=== PATIENT | female | born 1945 | race Caucasian/White ===

== ENCOUNTER 2017-01-10 19:37 | Inpatient (IN) | payer MEDICARE ==
--- NOTE | 2017-01-10 20:08 | ERPHSYRPT ---
- History of Present Illness Time Seen by Provider: 01/10/17 19:50 Source: patient Exam Limitations: no limitations Physician History: FOR THE PAST 22 HOURS PT HAS HAD SHORTNESS OF AIR AND INTERMITTENT SHARP LEFT CHEST PAIN LASTING UP TO 2 SECONDS PER EPISODE. PT ALSO STATES SHE HAS HAD INTERMITTENT CRAMPING BEHIND HER HEART FOR THE PAST 22 HOURS BUT IS UNSURE OF DURATION PER EPISODE. PT ALSO C/O OCCASIONAL HEADACHES. PT STATES SHE WAS HOSPITALIZED AT [facility] FOR 5 DAYS FOR A HB=5 AND INR OF 10. PT STATES SHE HAD AN EGD AND COLONOSCOPY BOTH OF WHICH FAILED TO SHOW BLEEDING HOWEVER BLOOD WAS DETECTED IN HER STOOL. PT RECEIVED 2 UNITS OF BLOOD AND WAS DISCHARGED HOME 12 DAYS AGO. Allergies/Adverse Reactions: No Known Drug Allergies Allergy (Verified 06/15/16 11:17) Home Medications: Atorvastatin Calcium 40 mg PO DAILY 09/26/15 [History] Clonazepam 0.5 mg [Klonopin 0.5 MG] 1 mg PO HS 09/26/15 [History] Losartan Potassium 50 mg [Cozaar 50 MG] 75 mg PO HS 09/26/15 [History] Omeprazole 20 MG [Prilosec 20 mg] 20 mg PO DAILY 09/26/15 [History] Escitalopram Oxalate [Lexapro] 10 mg PO DAILY 11/09/15 [History] Warfarin Sodium [Coumadin] 4 mg PO DAILY 11/09/15 [History] Aspirin 81 gm Chew [Baby Aspirin 81 mg Chew] 81 mg PO DAILY 05/24/16 [ History] Hx Tetanus, Diphtheria Vaccination/Date Given: No Hx Influenza Vaccination/Date Given: No Hx Pneumococcal Vaccination/Date Given: No - Review of Systems Constitutional: No Fever Ears, Nose, & Throat: No Ear Pain, No Throat Pain Respiratory: Dyspnea Cardiac: Chest Pain Abdominal/Gastrointestinal: No Abdominal Pain, No Vomiting Neurological: Headache Endocrine: No Excessive Sweating All Other Systems: Reviewed and Negative - Past Medical History Pertinent Past Medical History: Yes Neurological History: No Pertinent History ENT History: Cataracts Cardiac History: Arrhythmia, Congestive Heart Failure, High Cholesterol, Hypertension, Myocardial Infarction (HI) Respiratory History: Pneumonia Endocrine Medical History: No Pertinent History Musculoskeletal History: No Pertinent History, Fractures, Osteoarthritis GI Medical History: No Pertinent History, Gallbladder Disease History: Renal Disease, Other Psycho-Social History: Anxiety, Depression Female Reproductive Disorders: No Pertinent History Other Medical History: skin ca. KIDNEY FUNCTION 37% with kidney stone - Past Surgical History Past Surgical History: Yes Neuro Surgical History: No Pertinent History Cardiac: Cardiac Catheterization, Cardiac Stent, Valve Replacement Respiratory: No Pertinent History Gastrointestinal: Cholecystectomy Genitourinary: Kidney Surgery, Other Musculoskeletal: No Pertinent History Female Surgical History: No Pertinent History Other Surgical History: renal stents - Social History Smoking Status: Former smoker How long have you smoked: 30 Exposure to second hand smoke: No Drug Use: none Patient Lives Alone: No - Nursing Vital Signs Nursing Vital Signs: Initial Vital Signs Temperature 99.2 F Temperature Source Oral Pulse Rate [] 78 Pulse Rate 71 Respiratory Rate 23 Blood Pressure [] 130/78 Pain Intensity 0 - Physical Exam General Appearance: no apparent distress Eye Exam: PERRL/EOMI Ears, Nose, Throat Exam: pharynx normal, moist mucous membranes Neck Exam: normal inspection Respiratory Exam: other (SLIGHTLY DECREASED B.S. OVER LEFT POSTERIOR BASE.) Cardiovascular Exam: other (PROSTHETIC HEART VALVE SOUNDS) Gastrointestinal/Abdomen Exam: soft, normal bowel sounds Back Exam: normal range of motion Extremity Exam: normal inspection, No pedal edema Neurologic Exam: alert, cooperative Skin Exam: warm, dry - Course Nursing assessment & vital signs reviewed: Yes EKG Interpreted by Me: RATE, Sinus Rhythm, NORMAL AXIS, NORMAL INTERVALS, Right Bundle Branch Block - Radiology Exams Chest X-ray Interpretation: Interpreted by me (INFILTRATE LEFT LUNG) Ordered Tests: Active Orders 24 hr Category Date Time Status Attorney At Law STAT Care 01/10/17 19:59 Active EKG-ER Only STAT Care 01/10/17 19:59 Active IV Insertion STAT Care 01/10/17 19:59 Active Oxygen-ED Only NASAL CANNULA 2 lpm Care 01/10/17 19:59 Active Pulse Oximetry (ED) STAT Care 01/10/17 19:59 Active CHEST 1 VIEW (PORTABLE) Stat Exams 01/10/17 20:01 Taken AMYLASE Stat Lab 01/10/17 20:00 Completed BLOOD CULTURE Stat Lab 01/10/17 20:00 Received CBC W DIFF Stat Lab 01/10/17 20:00 Completed CMP Stat Lab 01/10/17 20:00 Completed CULTURE,SPUTUM Stat Lab 01/10/17 22:18 Uncollected CULTURE,URINE Stat Lab 01/10/17 20:40 Received LIPASE Stat Lab 01/10/17 20:00 Completed MAGNESIUM Stat Lab 01/10/17 20:00 Completed NT PRO BNP Stat Lab 01/10/17 20:00 Completed PROTIME WITH INR Stat Lab 01/10/17 20:00 Completed PTT Stat Lab 01/10/17 20:00 Completed TROPONIN Q3H Lab 01/10/17 20:00 Completed TROPONIN Q3H Lab 01/10/17 23:00 Ordered TROPONIN Q3H Lab 01/11/17 02:00 Ordered TROPONIN Q3H Lab 01/11/17 05:00 Ordered TROPONIN Q3H Lab 01/11/17 08:00 Ordered UA W/ MICROSCOPIC Stat Lab 01/10/17 20:40 Completed Respiratory Nebulizer STAT RT 01/10/17 22:19 Completed Medication Summary Generic Name Dose Route Start Last Admin Trade Name Freq PRN Reason Stop Dose Admin Sodium Chloride 1,000 mls @ 100 mls/hr 01/10/17 20:00 01/10/17 20:42 Sodium Chloride 0.9% 1000 Ml IV 02/09/17 19:59 100 mls/hr .Q10H MIREILLE Administration Magnesium Oxide 400 mg 01/11/17 10:00 01/10/17 22:29 Mag-Ox 400 PO 02/10/17 09:59 400 mg BID MIREILLE Administration Discontinued Medications Generic Name Dose Route Start Last Admin Trade Name Freq PRN Reason Stop Dose Admin Albuterol Sulfate 2.5 mg 01/10/17 22:18 01/10/17 22:32 Proventil 2.5 Mg/3 Ml Neb IH 01/10/17 22:19 2.5 mg STAT ONE Administration Albuterol Sulfate Confirm 01/10/17 22:30 Proventil 2.5 Mg/3 Ml Neb Administered 01/10/17 22:31 Dose 2.5 mg IH .STK-MED ONE Ceftriaxone Sodium/Dextrose 1 g in 50 mls @ 100 mls/hr 01/10/17 22:12 22:26 Rocephin 1 Gm-D5w 50 Ml Bag IV 01/10/17 22:41 100 mls/hr STAT STA Administration Azithromycin 500 mg in 250 mls @ 250 mls/hr 01/10/17 22:18 01/10/17 23:05 Zithromax 500 Mg/ 250 Ml Nacl Premix IV 01/10/17 23:17 250 mls/hr STAT STA Administration Ceftriaxone Sodium/Dextrose Confirm 01/10/17 22:17 Rocephin 1 Gm-D5w 50 Ml Bag Administered 01/10/17 22:18 Dose 1 g in 50 mls @ ud IV .STK-MED ONE Azithromycin Confirm 01/10/17 23:01 Zithromax 500 Mg/ 250 Ml Nacl Premix Administered 01/10/17 23:02 Dose 500 mg in 250 mls @ ud IV .STK-MED ONE Potassium Chloride 20 meq 01/10/17 22:12 01/10/17 22:23 Klor Con 10 Meq PO 01/10/17 22:13 20 meq STAT ONE Administration Potassium Chloride Confirm 01/10/17 22:17 Klor Con 10 Meq Administered 01/10/17 22:18 Dose 20 meq PO .STK-MED ONE Lab/Rad Data: Laboratory Result Diagrams 01/10/17 20:00 01/10/17 20:00 Laboratory Results 01/10/17 01/10/17 01/10/17 Range/Units 20:40 20:00 20:00 WBC (4.0-10.5) K/mm3 RBC (4.1-5.4) M/mm3 Hgb (12.0-16.0) gm/dl Hct (35-47) % MCV (78-100) fl MCH (26-32) pg MCHC (32-36) g/dl RDW (11.5-14.0) % Plt Count (150-450) K/mm3 MPV (6-9.5) fl Gran % (36.0-66.0) % Lymphocytes % (24.0-44.0) % Monocytes % (0.0-12.0) % Eosinophils % (0.00-5.0) % Basophils % (0.0-0.4) % Basophils # (0-0.4) INR 3.83 H (0.8-3.0) APTT 44.6 H (25.3-37.0) SECONDS Sodium (136-145) mEq/L Potassium (3.5-5.1) mEq/L Chloride (98-107) mEq/L Carbon Dioxide (21-32) mEq/L Anion Gap (5-15) MEQ/L BUN (9-20) mg/dL Creatinine (0.55-1.30) mg/dl Estimated GFR ML/MIN Glucose (70-110) MG/DL Calcium (8.5-10.1) mg/dL Magnesium (1.8-2.4) mg/dL Total Bilirubin (0.2-1.0) mg/dL AST (15-37) U/L ALT (12-78) U/L Alkaline Phosphatase (46-116) U/L Troponin I < 0.017 (0.000-0.056) ng/ml NT-Pro-B Natriuret Pep (0-125) pg/ml Serum Total Protein (6.4-8.2) gm/dL Albumin (3.4-5.0) g/dL Amylase (25-115) U/L Lipase (73-393) U/L Ur Collection Type CLEAN CATCH Urine Color YELLOW (YELLOW) Urine Appearance CLEAR (CLEAR) Urine pH 5.5 (5-6) Ur Specific Fitzhugh 1.010 (1.005-1.025) Urine Protein 30 (Negative) Urine Ketones NEGATIVE (NEGATIVE) Urine Blood 250 (0-5) Roger/ul Urine Nitrite NEGATIVE (NEGATIVE) Urine Bilirubin NEGATIVE (NEGATIVE) Urine Urobilinogen 1 (0-1) mg/dL Ur Leukocyte Esterase 1+ (NEGATIVE) Urine Microscopic RBC 10-15 (0-2) /HPF Urine Microscopic WBC 5-10 (0-5) /HPF Ur Epithelial Cells FEW (FEW) /HPF Urine Bacteria FEW (NEGATIVE) /HPF Urine Glucose NEGATIVE (NEGATIVE) mg/dL Specimen Received 01/10/17:20501/10/17 01/10/17 Range/Units 20:00 20:00 WBC 11.6 H (4.0-10.5) K/mm3 RBC 3.04 L (4.1-5.4) M/mm3 Hgb 8.3 L (12.0-16.0) gm/dl Hct 26.5 L (35-47) % MCV 87.2 (78-100) fl MCH 27.3 (26-32) pg MCHC 31.3 L (32-36) g/dl RDW 16.5 H (11.5-14.0) % Plt Count 269 (150-450) K/mm3 MPV 10.4 H (6-9.5) fl Gran % 81.4 H (36.0-66.0) % Lymphocytes % 7.6 L (24.0-44.0) % Monocytes % 9.5 (0.0-12.0) % Eosinophils % 1.3 (0.00-5.0) % Basophils % 0.2 (0.0-0.4) % Basophils # 0.02 (0-0.4) INR (0.8-3.0) APTT (25.3-37.0) SECONDS Sodium 140 (136-145) mEq/L Potassium 3.3 L (3.5-5.1) mEq/L Chloride 104 (98-107) mEq/L Carbon Dioxide 22.8 (21-32) mEq/L Anion Gap 16.0 H (5-15) MEQ/L BUN 20 (9-20) mg/dL Creatinine 1.30 (0.55-1.30) mg/dl Estimated GFR 43 ML/MIN Glucose 165 H (70-110) MG/DL Calcium 9.0 (8.5-10.1) mg/dL Magnesium 1.7 L (1.8-2.4) mg/dL Total Bilirubin 0.60 (0.2-1.0) mg/dL AST 52 H (15-37) U/L ALT 33 (12-78) U/L Alkaline Phosphatase 142 H (46-116) U/L Troponin I (0.000-0.056) ng/ml NT-Pro-B Natriuret Pep 1392 H (0-125) pg/ml Serum Total Protein 7.2 (6.4-8.2) gm/dL Albumin 3.4 (3.4-5.0) g/dL Amylase 34 (25-115) U/L Lipase 162 (73-393) U/L Ur Collection Type Urine Color (YELLOW) Urine Appearance (CLEAR) Urine pH (5-6) Ur Specific Fitzhugh (1.005-1.025) Urine Protein (Negative) Urine Ketones (NEGATIVE) Urine Blood (0-5) Roger/ul Urine Nitrite (NEGATIVE) Urine Bilirubin (NEGATIVE) Urine Urobilinogen (0-1) mg/dL Ur Leukocyte Esterase (NEGATIVE) Urine Microscopic RBC (0-2) /HPF Urine Microscopic WBC (0-5) /HPF Ur Epithelial Cells (FEW) /HPF Urine Bacteria (NEGATIVE) /HPF Urine Glucose (NEGATIVE) mg/dL Specimen Received - Departure Time of Disposition: 23:28 Departure Disposition: Observation Clinical Impression: LEFT LOWER LOBE PNEUMONIA, UTI, ANEMIA, HYPOMAGNESEMIA, HYPOKALEMIA, HTN, ARTHRITIS, ANXIETY, DEPRESSION Condition: Stable Critical Care Time: No Referrals: JUSTIN STEWARD MD [Primary Care Provider] -
[2017-01-10 20:09] LABS: BASOPHIL % 0.2 % (0.0-0.4); Eosinophil % 1.3 % (0.00-5.0); Granulocytes % 81.4 % (36.0-66.0); Lymphocytes % 7.6 % (24.0-44.0); Mean Cell Volume 87.2 fl (78-100); Mean Corpuscular Hemoglobin 27.3 pg (26-32); Mean Platelet Volume 10.4 fl (6-9.5); Monocytes % 9.5 % (0.0-12.0); Platelet Count 269 K/mm3 (150-450); Red Blood Count 3.04 M/mm3 (4.1-5.4); Red Cell Distribution Width 16.5 % (11.5-14.0); White Blood Count 11.6 K/mm3 (4.0-10.5)
[2017-01-10 20:26] LABS: INR 3.83 (0.8-3.0); PROTIME 43.9 SECONDS (9.95-12.35)
[2017-01-10 20:28] LABS: PTT 44.6 SECONDS (25.3-37.0)
[2017-01-10 20:41] LABS: ALBUMIN 3.4 g/dL (3.4-5.0); BILIRUBIN,TOTAL 0.6 mg/dL (0.2-1.0); Carbon Dioxide 22.8 mEq/L (21-32); MAGNESIUM 1.7 mg/dL (1.8-2.4); Potassium 3.3 mEq/L (3.5-5.1); Total Protein 7.2 gm/dL (6.4-8.2)
[2017-01-10] MEDS: Sodium Chloride 0.9% 1000 ML 1,000 ML IV SCH (20:42)
[2017-01-10 21:17] LABS: ADD URINE CULTURE? YES (NO); Bacteria FEW /HPF (NEGATIVE); Bilirubin NEGATIVE (NEGATIVE); Blood 250 Ery/ul (0-5); COMPLETE URINE MICROSCOPIC? YES; Collection Type CLEAN CATCH; Epithelial Cells FEW /HPF (FEW); Glucose NEGATIVE (NEGATIVE); Leukocyte Esterase 1+ (NEGATIVE)
[2017-01-10] MEDS ORDERED: Klor Con 10 MEQ PO ONE ×2 (22:12→22:17)
[2017-01-10] MEDS ORDERED: ROCEPHIN 1 Gm-D5w 50 ml Bag** 1 G/50 ML IVPB IV STA (22:12)
[2017-01-10] MEDS ORDERED: ROCEPHIN 1 Gm-D5w 50 ml Bag** 1 G/50 ML IVPB IV ONE (22:17)
[2017-01-10] MEDS ORDERED: Zithromax 500 MG/ 250 ML NaCl Premix 500 MG/250 ML IVPB IV STA (22:18)
[2017-01-10] MEDS ORDERED: PROVENTIL 2.5 MG/3 ML NEB IH ONE ×2 (22:18→22:30)
[2017-01-10] MEDS: MAG-OX 400 PO SCH ×2 (22:22→22:29)
[2017-01-10] MEDS ORDERED: Zithromax 500 MG/ 250 ML NaCl Premix 500 MG/250 ML IVPB IV ONE (23:01)
[2017-01-11] MEDS ORDERED: Phenergan 25 MG INJ IV PRN (00:57)
[2017-01-11] MEDS ORDERED: Sodium Chloride 0.9% 1000 ML 1,000 ML IV SCH (00:57)
[2017-01-11] MEDS: TYLENOL 325 MG PO PRN ×2 (01:03→16:02)
[2017-01-11] MEDS ORDERED: PROVENTIL 2.5 MG/3 ML NEB IH SCH (03:00)
[2017-01-11 05:30] LABS: BASOPHIL % 0.5 % (0.0-0.4); Eosinophil % 2.3 % (0.00-5.0); Granulocytes % 75.9 % (36.0-66.0); Lymphocytes % 10.6 % (24.0-44.0); Mean Cell Volume 88.6 fl (78-100); Mean Platelet Volume 10.7 fl (6-9.5); Monocytes % 10.7 % (0.0-12.0); Platelet Count 215 K/mm3 (150-450); Red Blood Count 2.55 M/mm3 (4.1-5.4); Red Cell Distribution Width 16.3 % (11.5-14.0)
[2017-01-11 05:40] LABS: INR 4.3 (0.8-3.0); PROTIME 49.3 SECONDS (9.95-12.35)
[2017-01-11 05:48] LABS: ALBUMIN 2.8 g/dL (3.4-5.0); ANION GAP 14.6 MEQ/L (5-15); BILIRUBIN,TOTAL 0.3 mg/dL (0.2-1.0); Carbon Dioxide 23.5 mEq/L (21-32); MAGNESIUM 1.6 mg/dL (1.8-2.4); Potassium 3.3 mEq/L (3.5-5.1); Total Protein 5.9 gm/dL (6.4-8.2)
[2017-01-11 06:04] LABS: Mean Corpuscular Hemoglobin 26.6 pg (26-32)
[2017-01-11] MEDS: Sodium Chloride 0.9% 1000 ML 1,000 ML IV SCH ×2 (06:44→18:45)
[2017-01-11] MEDS ORDERED: Klor Con 10 MEQ PO ONE (08:00)
--- NOTE | 2017-01-11 08:32 | PCM.HP ---
History of Present Illness - Chief Complaint Chief Complaint: Shortness of Breath History of Present Illness: is a 71 year old female who presented to the ER last night with complaint of cramping pain in her left chest, there was no nausea, vomiting, diaphoresis but she did feel short of breath. She denies cough or fever. Was recently admitted to [facility] for supratherapeutic INR and GI bleed, she states she had EGD/colonoscopy that were normal. She has no local phyisican, follows with Dr Quiroz and Dr Steele. - Review of Systems Constitutional: No Fever, No Chills Respiratory: Short Of Breath, No Cough, No Wheezing Cardiac: Chest Pain, No Palpitations, No Syncope Abdominal/Gastrointestinal: No Abdominal Pain, No Nausea, No Vomiting, No Diarrhea Skin: No Rash All Other Systems: Reviewed and Negative Medications & Allergies Home Medications: Home Medication List Atorvastatin Calcium 40 mg PO DAILY 09/26/15 [History Confirmed 01/10/17] Clonazepam 0.5 mg [Klonopin 0.5 MG] 0.5 mg PO HS 09/26/15 [History Confirmed 01/11/17] Losartan Potassium 50 mg [Cozaar 50 MG] 50 mg PO HS 09/26/15 [History Confirmed 01/11/17] Omeprazole 20 MG [Prilosec 20 mg] 20 mg PO DAILY 09/26/15 [History Confirmed ] Escitalopram Oxalate [Lexapro] 10 mg PO DAILY 11/09/15 [History Confirmed ] Warfarin Sodium [Coumadin] 4 mg PO DAILY 11/09/15 [History Confirmed 01/10/17] Aspirin 81 gm Chew [Baby Aspirin 81 mg Chew] 81 mg PO DAILY 05/24/16 [ History Confirmed 01/10/17] Allergies/Adverse Reactions: Allergies Allergy/AdvReac Type Severity Reaction Status Date / Time No Known Drug Allergies Allergy Verified 01/11/17 00:19 - Past Medical History Past Medical History: Yes Neurological History: No Pertinent History ENT History: Cataracts Cardiac History: Congestive Heart Failure, Coronary Artery Disease, High Cholesterol, Hypertension, Myocardial Infarction (DC) Respiratory History: CHF, Pneumonia Endocrine Medical History: No Pertinent History Musculoskelatal History: Osteoarthritis, Other GI Medical History: Diverticulitis, Diverticulosis, Gallbladder Disease History: Other Pyscho-Social History: Anxiety, Depression Reproductive Disorders: No Pertinent History Comment: scleraderma - Female History Hx Last Menstrual Period: na Are you now?: No - Past Surgical History Past Surgical History: Yes Neuro Surgical History: No Pertinent History Cardiac History: CABG, Cardiac Catheterization, Valve Replacement Respiratory Surgery: No Pertinent History GI Surgical History: Other Genitourinary Surgical Hx: No Pertinent History Musculskeletal Surgical Hx: No Pertinent History Female Surgical History: No Pertinent History Other Surgical History: mitral valve replacement x 2, colonoscopy and EGD 2 weeks ago - Social History Smoking Status: Former smoker How long have you smoked: 50 YEARS Exposure to second hand smoke: No Alcohol: None Drug Use: none - Physical Exam Vital Signs: Vital Signs - 24 hr Temp Pulse Pulse Resp BP Pulse Ox 01/11/17 08:10 97.9 F 69 19 140/65 97 01/11/17 08:00 18 01/11/17 07:51 62 18 98 01/11/17 04:00 98.2 F 61 18 132/62 99 01/11/17 03:20 64 18 99 01/11/17 03:11 64 18 99 01/11/17 00:33 97.1 F 78 18 137/61 99 01/10/17 22:32 71 23 99 01/10/17 21:55 99.2 F 78 16 130/78 97 01/10/17 20:50 73 20 148/70 100 01/10/17 20:28 78 97 01/10/17 20:02 98 F 72 16 150/68 99 Oxygen-Last 24 hours O2 Percentage 2 Liters = 28% O2 Percentage 2 Liters = 28% O2 Percentage 2 Liters = 28% O2 Percentage 2 Liters = 28% O2 Percentage 2 Liters = 28% O2 Percentage 2 Liters = 28% General Appearance: no apparent distress, alert Respiratory Exam: normal breath sounds, lungs clear, No respiratory distress Cardiovascular Exam: regular rate/rhythm, normal heart sounds, normal peripheral pulses Gastrointestinal/Abdomen Exam: soft, normal bowel sounds, No tenderness, No mass Extremity Exam: normal inspection, normal range of motion, pelvis stable Results - Labs Lab/Micro Results: Lab Results-Last 24 Hours 01/11/17 01/11/17 01/11/17 Range/Units 02:30 05:05 05:05 WBC 8.0 (4.0-10.5) K/mm3 RBC 2.55 L (4.1-5.4) M/mm3 Hgb 6.8 L* (12.0-16.0) gm/dl Hct 22.6 L (35-47) % MCV 88.6 (78-100) fl MCH 26.6 (26-32) pg MCHC 30.1 L (32-36) g/dl RDW 16.3 H (11.5-14.0) % Plt Count 215 (150-450) K/mm3 MPV 10.7 H (6-9.5) fl Gran % 75.9 H (36.0-66.0) % Lymphocytes % 10.6 L (24.0-44.0) % Monocytes % 10.7 (0.0-12.0) % Eosinophils % 2.3 (0.00-5.0) % Basophils % 0.5 (0.0-0.4) % Basophils # 0.04 (0-0.4) INR (0.8-3.0) Sodium (136-145) mEq/L Potassium (3.5-5.1) mEq/L Chloride (98-107) mEq/L Carbon Dioxide (21-32) mEq/L Anion Gap (5-15) MEQ/L BUN (9-20) mg/dL Creatinine (0.55-1.30) mg/dl Estimated GFR ML/MIN Glucose (70-110) MG/DL Calcium (8.5-10.1) mg/dL Magnesium (1.8-2.4) mg/dL Total Bilirubin (0.2-1.0) mg/dL AST (15-37) U/L ALT (12-78) U/L Alkaline Phosphatase (46-116) U/L Troponin I < 0.017 < 0.017 (0.000-0.056) ng/ml Serum Total Protein (6.4-8.2) gm/dL Albumin (3.4-5.0) g/dL ABO Group Rh Factor Antibody Screen (NEGATIVE) Crossmatch (COMPATIBLE) 01/11/17 01/11/17 01/11/17 Range/Units 05:05 05:05 06:30 WBC (4.0-10.5) K/mm3 RBC (4.1-5.4) M/mm3 Hgb (12.0-16.0) gm/dl Hct (35-47) % MCV (78-100) fl MCH (26-32) pg MCHC (32-36) g/dl RDW (11.5-14.0) % Plt Count (150-450) K/mm3 MPV (6-9.5) fl Gran % (36.0-66.0) % Lymphocytes % (24.0-44.0) % Monocytes % (0.0-12.0) % Eosinophils % (0.00-5.0) % Basophils % (0.0-0.4) % Basophils # (0-0.4) INR 4.30 H (0.8-3.0) Sodium 145 (136-145) mEq/L Potassium 3.3 L (3.5-5.1) mEq/L Chloride 110 H (98-107) mEq/L Carbon Dioxide 23.5 (21-32) mEq/L Anion Gap 14.6 (5-15) MEQ/L BUN 16 (9-20) mg/dL Creatinine 1.29 (0.55-1.30) mg/dl Estimated GFR 43 ML/MIN Glucose 159 H (70-110) MG/DL Calcium 8.0 L (8.5-10.1) mg/dL Magnesium 1.6 L (1.8-2.4) mg/dL Total Bilirubin 0.30 (0.2-1.0) mg/dL AST 37 (15-37) U/L ALT 30 (12-78) U/L Alkaline Phosphatase 108 (46-116) U/L Troponin I (0.000-0.056) ng/ml Serum Total Protein 5.9 L (6.4-8.2) gm/dL Albumin 2.8 L (3.4-5.0) g/dL ABO Group A Rh Factor POSITIVE Antibody Screen NEGATIVE (NEGATIVE) Crossmatch COMPATIBLE (COMPATIBLE) 01/11/17 Range/Units 06:30 WBC (4.0-10.5) K/mm3 RBC (4.1-5.4) M/mm3 Hgb (12.0-16.0) gm/dl Hct (35-47) % MCV (78-100) fl MCH (26-32) pg MCHC (32-36) g/dl RDW (11.5-14.0) % Plt Count (150-450) K/mm3 MPV (6-9.5) fl Gran % (36.0-66.0) % Lymphocytes % (24.0-44.0) % Monocytes % (0.0-12.0) % Eosinophils % (0.00-5.0) % Basophils % (0.0-0.4) % Basophils # (0-0.4) INR (0.8-3.0) Sodium (136-145) mEq/L Potassium (3.5-5.1) mEq/L Chloride (98-107) mEq/L Carbon Dioxide (21-32) mEq/L Anion Gap (5-15) MEQ/L BUN (9-20) mg/dL Creatinine (0.55-1.30) mg/dl Estimated GFR ML/MIN Glucose (70-110) MG/DL Calcium (8.5-10.1) mg/dL Magnesium (1.8-2.4) mg/dL Total Bilirubin (0.2-1.0) mg/dL AST (15-37) U/L ALT (12-78) U/L Alkaline Phosphatase (46-116) U/L Troponin I (0.000-0.056) ng/ml Serum Total Protein (6.4-8.2) gm/dL Albumin (3.4-5.0) g/dL ABO Group Rh Factor Antibody Screen (NEGATIVE) Crossmatch COMPATIBLE (COMPATIBLE) - Other Procedures and Tests Respiratory Therapy 01/11/17 04:52 Respiratory Nebulizer PRN Assessment/Plan (1) Chest pain Current Visit: Yes Status: Acute Assessment & Plan: patient currently with no pain, troponin negative, EKG shows complete RBBB unchanged from prior studies. appears noncardiac, likely related to pneumonia Code(s): R07.9 - CHEST PAIN, UNSPECIFIED (2) Left lower lobe pneumonia Current Visit: Yes Status: Acute Assessment & Plan: has infiltrate on chest xray, clinically not much sign of pneumonia but may be contributing to left sided chest pain. continue rocephin and zithromax at this time. Code(s): J18.1 - LOBAR PNEUMONIA, UNSPECIFIED ORGANISM (3) Anemia Current Visit: Yes Status: Acute Assessment & Plan: plan to hold coumadin, will transfuse 2 units packed red blood cells. records requested from [facility] Code(s): D64.9 - ANEMIA, UNSPECIFIED (4) Supratherapeutic INR Current Visit: Yes Status: Acute Assessment & Plan: on hold at this time Code(s): R79.1 - ABNORMAL COAGULATION PROFILE
[2017-01-11] MEDS: DILAUDID 2 MG INJECTION IV PRN ×2 (09:00→22:03)
[2017-01-11] MEDS: FEOSOL 325 MG PO SCH (09:02)
[2017-01-11] MEDS: MAG-OX 400 PO SCH ×3 (09:02→09:33)
[2017-01-11] MEDS: DUONEB 0.5-3 MG/3 ml Neb IH PRN ×2 (09:06→16:25)
--- NOTE | 2017-01-11 09:13 | XRAY ---
Indication: Short of breath. Comparison: May 22, 2013. Portable chest again hyperinflated with previous cardiac valvular replacement surgery and new left lung airspace disease without large effusion. Remaining heart and right lung unremarkable. Stable osteopenia. Comment: Preliminary interpretation was made by [facility]. No discrepancy.
[2017-01-11] MEDS: Lexapro 10 MG PO SCH (09:37)
[2017-01-11] MEDS ORDERED: NON-FORMULARY ITEM (Omeprazole 20 Mg [Prilosec 20 Mg] 20 MG) PO SCH (10:00)
[2017-01-11] MEDS ORDERED: PROTONIX 40 MG IV IV SCH (10:00)
[2017-01-11] MEDS: Klonopin 0.5 MG PO SCH (21:19)
[2017-01-11] MEDS: Cozaar 50 MG PO SCH (21:19)
[2017-01-11] MEDS: ROCEPHIN 1 Gm-D5w 50 ml Bag** 1 G/50 ML IVPB IV SCH (21:20)
[2017-01-11] MEDS: Zithromax 500 MG/ 250 ML NaCl Premix 500 MG/250 ML IVPB IV SCH (21:58)
[2017-01-12] MEDS: DUONEB 0.5-3 MG/3 ml Neb IH PRN ×2 (00:48→05:27)
[2017-01-12] MEDS: DILAUDID 2 MG INJECTION IV PRN ×2 (02:15→18:18)
[2017-01-12 05:25] LABS: Mean Cell Volume 85.7 fl (78-100); Mean Platelet Volume 10.5 fl (6-9.5); Platelet Count 250 K/mm3 (150-450); Red Blood Count 3.64 M/mm3 (4.1-5.4); White Blood Count 12.2 K/mm3 (4.0-10.5)
[2017-01-12 05:32] LABS: Mean Corpuscular Hemoglobin 27.4 pg (26-32)
[2017-01-12 05:51] LABS: ANION GAP 15.9 MEQ/L (5-15); BLOOD UREA NITROGEN 14 mg/dL (9-20); CHLORIDE 109 mEq/L (98-107); Glucose 121 MG/DL (70-110); MAGNESIUM 1.6 mg/dL (1.8-2.4); Potassium 3.9 mEq/L (3.5-5.1); SODIUM 143 mEq/L (136-145)
[2017-01-12 06:00] LABS: TROPONIN < 0.017 ng/ml (0.000-0.056)
--- NOTE | 2017-01-12 08:11 | PCM.NOTE ---
Date and Time: 01/12/17 0808 Subjective Assessment: patient states she feels weak today, unable to get up and ambulate. she is very short of breath as well Objective Exam General Appearance: no apparent distress, alert Respiratory Exam: crackles/rales Cardiovascular Exam: regular rate/rhythm, normal heart sounds Gastrointestinal/Abdomen Exam: soft, No tenderness, No mass Extremity Exam: normal inspection, normal range of motion OBJECTIVE DATA Vital Signs: Vital Signs - 24 hr Temp Pulse Resp BP Pulse Ox 01/12/17 05:28 79 20 93 L 01/12/17 04:30 98.9 F 79 22 158/68 90 L 01/12/17 01:15 98.7 F 63 18 137/65 94 L 01/12/17 00:48 66 18 92 L 01/11/17 20:00 98.3 F 74 18 163/71 96 01/11/17 18:25 69 20 97 01/11/17 16:27 67 20 99 01/11/17 16:00 98.4 F 66 18 153/70 99 01/11/17 12:00 98.6 F 68 19 122/56 98 01/11/17 09:13 66 16 98 01/11/17 08:10 97.9 F 69 19 140/65 97 Oxygen-Last 24 hours O2 Percentage 2 Liters = 28% O2 Percentage 2 Liters = 28% O2 Percentage 2 Liters = 28% O2 Percentage 2 Liters = 28% Pain Assessment - Last Documented Pain Intensity 6 Pain Scale Used 0-10 Pain Scale Intake and Output: Intake & Output 01/09/17 01/10/17 01/11/17 01/12/17 11:59 11:59 11:59 11:59 Intake Total 852 2125 Output Total 500 1100 Balance 352 1025 Weight 70.715 kg Lab Results: Lab Results-Last 24 Hours 01/11/17 01/11/17 01/11/17 Range/Units 08:17 16:30 18:25 WBC (4.0-10.5) K/mm3 RBC (4.1-5.4) M/mm3 Hgb 9.6 L (12.0-16.0) gm/dl Hct 30.2 L (35-47) % MCV (78-100) fl MCH (26-32) pg MCHC (32-36) g/dl RDW (11.5-14.0) % Plt Count (150-450) K/mm3 MPV (6-9.5) fl Sodium (136-145) mEq/L Potassium (3.5-5.1) mEq/L Chloride (98-107) mEq/L Carbon Dioxide (21-32) mEq/L Anion Gap (5-15) MEQ/L BUN (9-20) mg/dL Creatinine (0.55-1.30) mg/dl Estimated GFR ML/MIN Glucose (70-110) MG/DL Calcium (8.5-10.1) mg/dL Magnesium (1.8-2.4) mg/dL Troponin I < 0.017 < 0.017 (0.000-0.056) ng/ml 01/12/17 01/12/17 Range/Units 05:05 05:05 WBC 12.2 H (4.0-10.5) K/mm3 RBC 3.64 L (4.1-5.4) M/mm3 Hgb 10.0 L (12.0-16.0) gm/dl Hct 31.2 L (35-47) % MCV 85.7 (78-100) fl MCH 27.4 (26-32) pg MCHC 32.1 (32-36) g/dl RDW 17.0 H (11.5-14.0) % Plt Count 250 (150-450) K/mm3 MPV 10.5 H (6-9.5) fl Sodium 143 (136-145) mEq/L Potassium 3.9 (3.5-5.1) mEq/L Chloride 109 H (98-107) mEq/L Carbon Dioxide 22.0 (21-32) mEq/L Anion Gap 15.9 H (5-15) MEQ/L BUN 14 (9-20) mg/dL Creatinine 1.20 (0.55-1.30) mg/dl Estimated GFR 47 ML/MIN Glucose 121 H (70-110) MG/DL Calcium 8.5 (8.5-10.1) mg/dL Magnesium 1.6 L (1.8-2.4) mg/dL Troponin I < 0.017 (0.000-0.056) ng/ml Multi-Disciplinary Progress Notes: Multi-Disciplinary Progress Notes 01/11/17 09:29 Pharmacy Note by Alonzo,Andrew Please be aware of possible drug interaction with Zithromax and Lexapro. May prolong the QT interval. Initialized on 01/11/17 09:29 - END OF NOTE Assessment/Plan (1) Chest pain Current Visit: Yes Status: Acute Assessment & Plan: will anchor jacome due to weakness and inability to ambulate, needs lasix. appears to have volume overload Code(s): R07.9 - CHEST PAIN, UNSPECIFIED (2) Left lower lobe pneumonia Current Visit: Yes Status: Acute Assessment & Plan: continue IV abx, nebs and current management Code(s): J18.1 - LOBAR PNEUMONIA, UNSPECIFIED ORGANISM (3) Anemia Current Visit: Yes Status: Acute Code(s): D64.9 - ANEMIA, UNSPECIFIED (4) Supratherapeutic INR Current Visit: Yes Status: Acute Assessment & Plan: repeat level Code(s): R79.1 - ABNORMAL COAGULATION PROFILE
[2017-01-12 08:26] LABS: Total Cells Counted 100
[2017-01-12 08:27] LABS: Poikilocytosis 1+
[2017-01-12 08:28] LABS: ANISOCYTOSIS 1+; Platelet Estimate NORMAL (NORMAL); Schistocytes 1+
[2017-01-12] MEDS: TYLENOL 325 MG PO PRN (08:35)
[2017-01-12] MEDS: Lexapro 10 MG PO SCH (08:36)
[2017-01-12] MEDS: MAG-OX 400 PO SCH (08:36)
[2017-01-12] MEDS: Lasix 20 MG/2 ML IV SCH ×2 (08:37→18:18)
[2017-01-12] MEDS: Protonix 40MG Tablet PO SCH (08:37)
[2017-01-12] MEDS: FEOSOL 325 MG PO SCH (08:37)
[2017-01-12 10:34] LABS: INR 3.24 (0.8-3.0); PROTIME 37.1 SECONDS (9.95-12.35)
[2017-01-12 11:24] LABS: Bacteria FEW /HPF (NEGATIVE); Bilirubin NEGATIVE (NEGATIVE); COMPLETE URINE MICROSCOPIC? YES; Collection Type CATH; Glucose NEGATIVE (NEGATIVE); Leukocyte Esterase TRACE (NEGATIVE); WBC 0-2 /HPF (0-5)
[2017-01-12] MEDS: Cozaar 50 MG PO SCH (21:35)
[2017-01-12] MEDS: Klonopin 0.5 MG PO SCH (21:35)
[2017-01-12] MEDS: ROCEPHIN 1 Gm-D5w 50 ml Bag** 1 G/50 ML IVPB IV SCH (21:36)
[2017-01-12] MEDS: Zithromax 500 MG/ 250 ML NaCl Premix 500 MG/250 ML IVPB IV SCH (22:13)
[2017-01-13 06:09] LABS: BASOPHIL % 0.5 % (0.0-0.4); Eosinophil % 4.5 % (0.00-5.0); Granulocytes % 75.1 % (36.0-66.0); Lymphocytes % 8.8 % (24.0-44.0); Mean Cell Volume 85.5 fl (78-100); Mean Corpuscular Hemoglobin 27.1 pg (26-32); Mean Platelet Volume 10.2 fl (6-9.5); Monocytes % 11.1 % (0.0-12.0); Platelet Count 262 K/mm3 (150-450); Red Blood Count 3.65 M/mm3 (4.1-5.4); Red Cell Distribution Width 16.9 % (11.5-14.0); White Blood Count 8.2 K/mm3 (4.0-10.5)
[2017-01-13 06:21] LABS: PROTIME 22.8 SECONDS (9.95-12.35)
[2017-01-13 06:23] LABS: ANION GAP 14.2 MEQ/L (5-15); Carbon Dioxide 26.2 mEq/L (21-32); Potassium 3.3 mEq/L (3.5-5.1)
[2017-01-13] MEDS: DUONEB 0.5-3 MG/3 ml Neb IH PRN (09:37)
[2017-01-13] MEDS: Lasix 20 MG/2 ML IV SCH ×2 (10:41→17:42)
[2017-01-13] MEDS: FEOSOL 325 MG PO SCH (10:42)
[2017-01-13] MEDS: Protonix 40MG Tablet PO SCH (10:42)
[2017-01-13] MEDS: Lexapro 10 MG PO SCH (10:42)
[2017-01-13] MEDS: MAG-OX 400 PO SCH (10:42)
--- NOTE | 2017-01-13 11:25 | PCM.NOTE ---
Date and Time: 01/13/17 1120 Subjective Assessment: States she is feeling "about 50/50" - breathing is still somewhat tight, better with nebulizer treatments. Hasn't been up to walk yet today. - Review of Systems Constitutional: No Fever Respiratory: Short Of Breath Objective Exam General Appearance: no apparent distress Neurologic Exam: alert, cooperative Skin Exam: normal color, warm, dry Respiratory Exam: normal breath sounds, crackles/rales (faint L base), wheezing (faint, scattered), No rhonchi Cardiovascular Exam: regular rate/rhythm, normal heart sounds, No murmur Extremity Exam: No pedal edema, No swelling Back Exam: normal inspection OBJECTIVE DATA Vital Signs: Vital Signs - 24 hr Temp Pulse Resp BP Pulse Ox 01/13/17 09:37 66 18 93 L 01/13/17 07:27 99.0 F 79 18 145/64 94 L 01/13/17 04:14 98.5 F 79 17 141/64 92 L 01/13/17 00:21 98.7 F 66 17 137/63 93 L 01/12/17 21:00 99.1 F 80 20 151/68 95 01/12/17 20:50 86 18 93 L 01/12/17 16:54 97.7 F 79 20 157/70 96 01/12/17 15:54 16 01/12/17 13:06 96 01/12/17 13:00 98.5 F 66 20 133/60 92 L Oxygen-Last 24 hours O2 Percentage 2 Liters = 28% O2 Percentage 2 Liters = 28% Pain Assessment - Last Documented Pain Intensity 0 Pain Scale Used 0-10 Pain Scale Intake and Output: Intake & Output 01/10/17 01/11/17 01/12/17 01/13/17 11:59 11:59 11:59 11:59 Intake Total 840 Output Total 4100 Balance -3260 Weight 71.532 kg Lab Results: Lab Results-Last 24 Hours 01/12/17 01/13/17 01/13/17 Range/Units 11:00 05:59 05:59 WBC 8.2 (4.0-10.5) K/mm3 RBC 3.65 L (4.1-5.4) M/mm3 Hgb 9.9 L (12.0-16.0) gm/dl Hct 31.2 L (35-47) % MCV 85.5 (78-100) fl MCH 27.1 (26-32) pg MCHC 31.7 L (32-36) g/dl RDW 16.9 H (11.5-14.0) % Plt Count 262 (150-450) K/mm3 MPV 10.2 H (6-9.5) fl Gran % 75.1 H (36.0-66.0) % Lymphocytes % 8.8 L (24.0-44.0) % Monocytes % 11.1 (0.0-12.0) % Eosinophils % 4.5 (0.00-5.0) % Basophils % 0.5 (0.0-0.4) % Basophils # 0.04 (0-0.4) INR (0.8-3.0) Sodium 141 (136-145) mEq/L Potassium 3.3 L (3.5-5.1) mEq/L Chloride 104 (98-107) mEq/L Carbon Dioxide 26.2 (21-32) mEq/L Anion Gap 14.2 (5-15) MEQ/L BUN 18 (9-20) mg/dL Creatinine 1.36 H (0.55-1.30) mg/dl Estimated GFR 41 ML/MIN Glucose 99 (70-110) MG/DL Calcium 9.2 (8.5-10.1) mg/dL NT-Pro-B Natriuret Pep 2760 H (0-125) pg/ml Ur Collection Type CATH Urine Color YELLOW (YELLOW) Urine Appearance CLEAR (CLEAR) Urine pH 5.0 (5-6) Ur Specific [place] 1.010 (1.005-1.025) Urine Protein 2+ (Negative) Urine Ketones NEGATIVE (NEGATIVE) Urine Blood 5-10 (0-5) Roger/ul Urine Nitrite NEGATIVE (NEGATIVE) Urine Bilirubin NEGATIVE (NEGATIVE) Urine Urobilinogen NORMAL (0-1) mg/dL Ur Leukocyte Esterase TRACE (NEGATIVE) Urine Microscopic RBC 0-2 (0-2) /HPF Urine Microscopic WBC 0-2 (0-5) /HPF Urine Bacteria FEW (NEGATIVE) /HPF Urine Glucose NEGATIVE (NEGATIVE) mg/dL Specimen Received 01/12/17 1100 01/13/17 Range/Units 05:59 WBC (4.0-10.5) K/mm3 RBC (4.1-5.4) M/mm3 Hgb (12.0-16.0) gm/dl Hct (35-47) % MCV (78-100) fl MCH (26-32) pg MCHC (32-36) g/dl RDW (11.5-14.0) % Plt Count (150-450) K/mm3 MPV (6-9.5) fl Gran % (36.0-66.0) % Lymphocytes % (24.0-44.0) % Monocytes % (0.0-12.0) % Eosinophils % (0.00-5.0) % Basophils % (0.0-0.4) % Basophils # (0-0.4) INR 2.00 (0.8-3.0) Sodium (136-145) mEq/L Potassium (3.5-5.1) mEq/L Chloride (98-107) mEq/L Carbon Dioxide (21-32) mEq/L Anion Gap (5-15) MEQ/L BUN (9-20) mg/dL Creatinine (0.55-1.30) mg/dl Estimated GFR ML/MIN Glucose (70-110) MG/DL Calcium (8.5-10.1) mg/dL NT-Pro-B Natriuret Pep (0-125) pg/ml Ur Collection Type Urine Color (YELLOW) Urine Appearance (CLEAR) Urine pH (5-6) Ur Specific [place] (1.005-1.025) Urine Protein (Negative) Urine Ketones (NEGATIVE) Urine Blood (0-5) Roger/ul Urine Nitrite (NEGATIVE) Urine Bilirubin (NEGATIVE) Urine Urobilinogen (0-1) mg/dL Ur Leukocyte Esterase (NEGATIVE) Urine Microscopic RBC (0-2) /HPF Urine Microscopic WBC (0-5) /HPF Urine Bacteria (NEGATIVE) /HPF Urine Glucose (NEGATIVE) mg/dL Specimen Received Assessment/Plan (1) Left lower lobe pneumonia Current Visit: Yes Status: Acute Qualifiers: Pneumonia type: due to unspecified organism Qualified Code(s): J18.1 - Lobar pneumonia, unspecified organism Assessment & Plan: On IV rocephin and zithromax. Improved. Will likely need another day or two of treatment before discharge to home. Code(s): J18.1 - LOBAR PNEUMONIA, UNSPECIFIED ORGANISM (2) Fluid overload Current Visit: No Status: Acute Assessment & Plan: Will continue some diuresis; pro BNP is improved today, and clinically she is doing better. Her renal function did decrease slightly with the diuresis. Code(s): E87.70 - FLUID OVERLOAD, UNSPECIFIED (3) Anemia Current Visit: Yes Status: Acute Qualifiers: Anemia type: iron deficiency Iron deficiency anemia type: unspecified iron deficiency Qualified Code(s): D50.9 - Iron deficiency anemia, unspecified Assessment & Plan: Her hgb 9.9 this morning; was 10.0 yesterday. Recheck in the morning. Did receive 2 units PRBC here. Code(s): D64.9 - ANEMIA, UNSPECIFIED (4) Renal insufficiency Current Visit: Yes Status: Acute Assessment & Plan: recheck BMP in the morning. (5) Supratherapeutic INR Current Visit: Yes Status: Resolved Assessment & Plan: INR 2.0 today - resume warfarin and check INR daily. Code(s): R79.1 - ABNORMAL COAGULATION PROFILE (6) Mood disorder Current Visit: Yes Status: Acute Assessment & Plan: Pt is on lexapro; I have d/c'd this in favor of zoloft temporarily as there can be a serious interaction with lexapro and zithromax.
[2017-01-13] MEDS: TYLENOL 325 MG PO PRN ×2 (13:57→21:37)
[2017-01-13] MEDS: Coumadin 2 MG PO SCH (17:42)
[2017-01-13] MEDS: Zithromax 500 MG/ 250 ML NaCl Premix 500 MG/250 ML IVPB IV SCH (21:11)
[2017-01-13] MEDS: Klonopin 0.5 MG PO SCH (21:11)
[2017-01-13] MEDS: Cozaar 50 MG PO SCH (21:11)
[2017-01-13] MEDS: ROCEPHIN 1 Gm-D5w 50 ml Bag** 1 G/50 ML IVPB IV SCH (21:12)
[2017-01-14 06:00] LABS: ANION GAP 14.5 MEQ/L (5-15); Carbon Dioxide 29.5 mEq/L (21-32); Potassium 3.1 mEq/L (3.5-5.1)
[2017-01-14 06:01] LABS: Mean Cell Volume 85.9 fl (78-100); Mean Platelet Volume 10.3 fl (6-9.5); Platelet Count 285 K/mm3 (150-450); Red Blood Count 3.77 M/mm3 (4.1-5.4); Red Cell Distribution Width 16.8 % (11.5-14.0); White Blood Count 7.6 K/mm3 (4.0-10.5)
[2017-01-14 06:04] LABS: INR 1.61 (0.8-3.0); PROTIME 18.3 SECONDS (9.95-12.35)
[2017-01-14] MEDS: DUONEB 0.5-3 MG/3 ml Neb IH PRN (09:09)
[2017-01-14] MEDS: ZOLOFT 50 MG TABLET PO SCH (10:42)
[2017-01-14] MEDS: Protonix 40MG Tablet PO SCH (10:48)
[2017-01-14] MEDS: FEOSOL 325 MG PO SCH (10:48)
[2017-01-14] MEDS: MAG-OX 400 PO SCH (10:48)
[2017-01-14] MEDS: TYLENOL 325 MG PO PRN (10:53)
[2017-01-14] MEDS: Lasix 20 MG/2 ML IV SCH (11:51)
[2017-01-14] MEDS ORDERED: Klor Con 10 MEQ PO ONE (12:49)
--- NOTE | 2017-01-14 12:53 | PCM.NOTE ---
Date and Time: 01/14/17 1249 Subjective Assessment: Not feeling as well today overall as she felt yesterday. Breathing is OK. Urination has been good. [place] po. - Review of Systems Constitutional: No Fever Abdominal/Gastrointestinal: No Vomiting Objective Exam General Appearance: no apparent distress Neurologic Exam: alert, oriented x 3, cooperative Skin Exam: normal color, warm, dry Respiratory Exam: normal breath sounds, lungs clear, No crackles/rales, No rhonchi, No wheezing Cardiovascular Exam: regular rate/rhythm, normal heart sounds, No murmur Extremity Exam: No pedal edema, No swelling OBJECTIVE DATA Vital Signs: Vital Signs - 24 hr Temp Pulse Resp BP Pulse Ox 01/14/17 12:00 18 01/14/17 11:23 98.3 F 71 18 134/60 93 L 01/14/17 09:09 75 18 95 01/14/17 08:55 18 01/14/17 07:28 98.5 F 68 18 132/60 94 L 01/14/17 04:17 98.0 F 68 20 128/63 92 L 01/14/17 04:00 98.1 F 71 18 121/59 91 L 01/14/17 00:00 98.1 F 71 18 121/59 91 L 01/13/17 23:00 18 01/13/17 20:00 98.3 F 77 18 126/59 92 L 01/13/17 18:41 77 18 94 L 01/13/17 16:00 97.4 F 77 18 132/63 94 L Pain Assessment - Last Documented Pain Intensity 4 Pain Scale Used 0-10 Pain Scale Intake and Output: Intake & Output 01/12/17 01/13/17 01/14/17 01/15/17 11:59 11:59 11:59 11:59 Intake Total 840 1390 Output Total 4100 3100 Balance -3260 -1710 Weight 71.532 kg Lab Results: Lab Results-Last 24 Hours 01/14/17 01/14/17 01/14/17 Range/Units 05:15 05:15 05:15 WBC 7.6 (4.0-10.5) K/mm3 RBC 3.77 L (4.1-5.4) M/mm3 Hgb 10.2 L (12.0-16.0) gm/dl Hct 32.4 L (35-47) % MCV 85.9 (78-100) fl MCH 27.0 (26-32) pg MCHC 31.5 L (32-36) g/dl RDW 16.8 H (11.5-14.0) % Plt Count 285 (150-450) K/mm3 MPV 10.3 H (6-9.5) fl INR 1.61 (0.8-3.0) Sodium 146 H (136-145) mEq/L Potassium 3.1 L (3.5-5.1) mEq/L Chloride 105 (98-107) mEq/L Carbon Dioxide 29.5 (21-32) mEq/L Anion Gap 14.5 (5-15) MEQ/L BUN 24 H (9-20) mg/dL Creatinine 1.47 H (0.55-1.30) mg/dl Estimated GFR 37 ML/MIN Glucose 105 (70-110) MG/DL Calcium 9.1 (8.5-10.1) mg/dL Multi-Disciplinary Progress Notes: Multi-Disciplinary Progress Notes 01/13/17 17:29 Case Management Note by Yris Staples DISCHARGE PLAN REVIEWED. PLAN TO RETURN HOME TO PRE EPISODIC LEVEL OF FUNCTION. DENIES NEED AT THIS TIME FOR ANY FURTHER D/C NEEDS. WILL CONTINUE TO MONITOR FOR ALL D/C NEEDS. Initialized on 01/13/17 17:29 - END OF NOTE Assessment/Plan (1) Left lower lobe pneumonia Current Visit: Yes Status: Acute Qualifiers: Pneumonia type: due to unspecified organism Qualified Code(s): J18.1 - Lobar pneumonia, unspecified organism Assessment & Plan: Feeling worse than yesterday; still on IV antibiotics. Likely home tomorrow. Code(s): J18.1 - LOBAR PNEUMONIA, UNSPECIFIED ORGANISM (2) Fluid overload Current Visit: No Status: Acute Assessment & Plan: Renal status is worsened today; will d/c the lasix, OK to drink fluids as needed. Recheck in a.m. Code(s): E87.70 - FLUID OVERLOAD, UNSPECIFIED (3) Anemia Current Visit: Yes Status: Acute Qualifiers: Anemia type: iron deficiency Iron deficiency anemia type: unspecified iron deficiency Qualified Code(s): D50.9 - Iron deficiency anemia, unspecified Assessment & Plan: recheck labs in a.m. Code(s): D64.9 - ANEMIA, UNSPECIFIED (4) Renal insufficiency Current Visit: Yes Status: Acute Assessment & Plan: worsened creatinine today. REcheck in a.m. stop lasix. (5) Supratherapeutic INR Current Visit: Yes Status: Resolved Code(s): R79.1 - ABNORMAL COAGULATION PROFILE (6) Mood disorder Current Visit: Yes Status: Acute Assessment & Plan: stable.
[2017-01-14] MEDS: ENOXAPARIN SODIUM SQ SCH (13:46)
[2017-01-14] MEDS: ULTRAM 50 MG PO PRN ×2 (13:46→22:58)
[2017-01-14] MEDS: Coumadin 2 MG PO SCH (18:54)
[2017-01-14] MEDS: Nystatin SUSPENSION 60 ML PO SCH (18:58)
[2017-01-14] MEDS: ROCEPHIN 1 Gm-D5w 50 ml Bag** 1 G/50 ML IVPB IV SCH (22:50)
[2017-01-14] MEDS: DILAUDID 2 MG INJECTION IV PRN (22:50)
[2017-01-14] MEDS: Cozaar 50 MG PO SCH (22:50)
[2017-01-14] MEDS: Klonopin 0.5 MG PO SCH (22:50)
[2017-01-14] MEDS: Zithromax 500 MG/ 250 ML NaCl Premix 500 MG/250 ML IVPB IV SCH (22:50)
[2017-01-15 05:45] LABS: BASOPHIL % 0.4 % (0.0-0.4); Eosinophil % 7.1 % (0.00-5.0); Granulocytes % 72.2 % (36.0-66.0); Lymphocytes % 10.5 % (24.0-44.0); Mean Cell Volume 87.1 fl (78-100); Monocytes % 9.8 % (0.0-12.0); Platelet Count 263 K/mm3 (150-450); Red Blood Count 3.41 M/mm3 (4.1-5.4); Red Cell Distribution Width 17.2 % (11.5-14.0); White Blood Count 7.4 K/mm3 (4.0-10.5)
[2017-01-15 05:59] LABS: Mean Corpuscular Hemoglobin 26.9 pg (26-32)
[2017-01-15 06:10] LABS: ANION GAP 14.1 MEQ/L (5-15); Carbon Dioxide 27.9 mEq/L (21-32); Potassium 3.5 mEq/L (3.5-5.1)
[2017-01-15 07:43] VITALS: BP 125/58; PULSE 64; O2SAT 94
--- NOTE | 2017-01-15 08:09 | PCM.DS ---
Discharge Summary Date of Admission: 01/12/17 08:08 Admitting Physician: ISAI HOWELL Primary Care Provider: ISAI HOWELL Allergies Allergies No Known Drug Allergies Allergy (Verified 01/11/17 00:19) Hospital Summary - Hospital Course Hospital Course: patient was admitted with chest pain, ME was ruled out. found to have pneumonia , anemia secondary to supratherapeutic INR, required transfusion. coumadin has been reduced to 3mg daily upon discharge - Vitals & Intake/Output Vital Signs: Vital Signs Temperature 98.4 F 01/15/17 07:42 Pulse Rate 64 01/15/17 07:42 Respiratory Rate 18 01/15/17 07:42 Blood Pressure 125/58 01/15/17 07:42 O2 Sat by Pulse Oximetry 94 L 01/15/17 07:42 Oxygen-Last Documented O2 Percentage 2 Liters = 28% Intake & Output: Intake & Output 01/12/17 01/13/17 01/14/17 01/15/17 11:59 11:59 11:59 11:59 Intake Total 840 1390 1420 Output Total 4100 3100 900 Balance -3260 -1710 520 Weight 71.532 kg 72.393 kg - Lab Result Diagrams: 01/15/17 05:15 01/15/17 05:15 Lab Results-Last 24 Hrs: Lab Results-Last 24 Hours 01/15/17 01/15/17 Range/Units 05:15 05:15 WBC 7.4 (4.0-10.5) K/mm3 RBC 3.41 L (4.1-5.4) M/mm3 Hgb 9.2 L (12.0-16.0) gm/dl Hct 29.7 L (35-47) % MCV 87.1 (78-100) fl MCH 26.9 (26-32) pg MCHC 31.0 L (32-36) g/dl RDW 17.2 H (11.5-14.0) % Plt Count 263 (150-450) K/mm3 MPV 10.0 H (6-9.5) fl Gran % 72.2 H (36.0-66.0) % Lymphocytes % 10.5 L (24.0-44.0) % Monocytes % 9.8 (0.0-12.0) % Eosinophils % 7.1 H (0.00-5.0) % Basophils % 0.4 (0.0-0.4) % Basophils # 0.03 (0-0.4) Sodium 144 (136-145) mEq/L Potassium 3.5 (3.5-5.1) mEq/L Chloride 105 (98-107) mEq/L Carbon Dioxide 27.9 (21-32) mEq/L Anion Gap 14.1 (5-15) MEQ/L BUN 24 H (9-20) mg/dL Creatinine 1.32 H (0.55-1.30) mg/dl Estimated GFR 42 ML/MIN Glucose 93 (70-110) MG/DL Calcium 8.7 (8.5-10.1) mg/dL NT-Pro-B Natriuret Pep 394 H (0-125) pg/ml Micro Results-Entire Visit: Microbiology 01/12/17 12:00 - Final Catherized NO GROWTH Discharge Exam General Appearance: no apparent distress, alert Respiratory Exam: normal breath sounds, lungs clear, No respiratory distress Cardiovascular Exam: regular rate/rhythm, normal heart sounds Gastrointestinal/Abdomen Exam: soft, No tenderness, No mass Extremity Exam: normal inspection, normal range of motion Final Diagnosis/Problem List - Final Discharge Diagnosis/Problem (1) Chest pain Current Visit: Yes Status: Deleted (2) Left lower lobe pneumonia Current Visit: Yes Status: Acute (3) Anemia Current Visit: Yes Status: Acute (4) Supratherapeutic INR Current Visit: Yes Status: Resolved - Discharge Disposition: Home, Self-Care Condition: Good Prescriptions: New Warfarin Sodium 3 mg [Coumadin 3 MG] 3 mg PO DAILY@1800 #0 tablet Albuterol/Ipratropium 3ml Neb* [DUONEB 0.5-3 MG/3 ml Neb] 3 ml IH Q4HPRN PRN #100 ampul.neb PRN Reason: Shortness Of Breath/Wheezing Ferrous Sulfate 325 mg [Feosol 325 mg] 325 mg PO DAILY #30 tablet Nystatin 60 ml [Nystatin SUSPENSION 60 ML] 5 ml PO QID #120 ml Continue Clonazepam 0.5 mg [Klonopin 0.5 MG] 0.5 mg PO HS Losartan Potassium 50 mg [Cozaar 50 MG] 50 mg PO HS Atorvastatin Calcium 40 mg PO DAILY Omeprazole 20 MG [Prilosec 20 mg] 20 mg PO DAILY Escitalopram Oxalate [Lexapro] 10 mg PO DAILY Aspirin 81 gm Chew [Baby Aspirin 81 mg Chew] 81 mg PO DAILY Discontinued Warfarin Sodium [Coumadin] 4 mg PO DAILY Additional Instructions: continue coumadin at 3mg/day and have INR checked on Sunday. take nebulizers every 4 hours as needed. return for shortness of breath, fever or other new complaints. Follow up with: JUSTIN STEWARD MD [NON-STAFF PHY W/O PRIVILEGES] - Forms: Patient Portal Information
[2017-01-15] MEDS: FEOSOL 325 MG PO SCH (08:31)
[2017-01-15] MEDS: Nystatin SUSPENSION 60 ML PO SCH (08:31)
[2017-01-15] MEDS: MAG-OX 400 PO SCH (08:31)
[2017-01-15] MEDS: ENOXAPARIN SODIUM SQ SCH (08:31)
[2017-01-15] MEDS: Protonix 40MG Tablet PO SCH (08:31)
[2017-01-15] MEDS: ZOLOFT 50 MG TABLET PO SCH (08:31)
[2017-01-15] MEDS ORDERED: Coumadin 3 MG PO SCH (18:00)
== END 2017-01-15 10:50 | disposition home or self-care (01) | DRG 195 ==
LOC: ED 19:37 → MED SURG 01-11 00:06 → OBSVTOIN 01-12 08:08
PROVIDERS: ADMIT Family Medicine; ATTEND Family Medicine
DX: J18.1 Lobar pneumonia, unspecified organism (principal); R79.1 Abnormal coagulation profile; D50.9 Iron deficiency anemia, unspecified; I50.9 Heart failure, unspecified; I10 Essential (primary) hypertension; I25.2 Old myocardial infarction; M19.90 Unspecified osteoarthritis, unspecified site; F41.8 Other specified anxiety disorders; H15.9 Unspecified disorder of sclera; E87.70 Fluid overload, unspecified; N28.9 Disorder of kidney and ureter, unspecified; F39 Unspecified mood [affective] disorder
CPT/HCPCS: 36000; 36415; 36430; 71010; 80048; 80053; 81000; 82150; 83690; 83735; 83880; 84484; 85014; 85018; 85025; 85027; 85610; 85730; 86850; 86900; 86901; 86922; 87040; 87086; 93005; 93041; 93268; 94640; 94760; 96360; 99285; G0378; J0456; J0696; J1170; J1650; J1940; P9016; A9270-GY

== ENCOUNTER 2017-03-22 16:10 | Emergency (ER) | payer MEDICARE ==
[2017-03-22] MEDS ORDERED: Toprol-Xl 25MG Tablets PO ONE (16:13)
[2017-03-22] MEDS ORDERED: NITRO-BID 2% UD PACKETS TOP ONE (16:13)
[2017-03-22] MEDS ORDERED: Sodium Chloride 0.9% 1000 ML 1,000 ML IV SCH (16:15)
[2017-03-22] MEDS ORDERED: Ativan 1 MG PO ONE (16:18)
[2017-03-22 16:28] LABS: BASOPHIL % 0.5 % (0.0-0.4); Eosinophil % 3.9 % (0.00-5.0); Granulocytes % 70.4 % (36.0-66.0); Lymphocytes % 17.6 % (24.0-44.0); Mean Cell Volume 87.1 fl (78-100); Mean Corpuscular Hemoglobin 27.7 pg (26-32); Mean Platelet Volume 10.8 fl (6-9.5); Monocytes % 7.6 % (0.0-12.0); Platelet Count 204 K/mm3 (150-450); Red Blood Count 4.65 M/mm3 (4.1-5.4); Red Cell Distribution Width 16.7 % (11.5-14.0); White Blood Count 7.8 K/mm3 (4.0-10.5)
--- NOTE | 2017-03-22 16:28 | ERPHSYRPT ---
- History of Present Illness Time Seen by Provider: 03/22/17 16:10 Source: patient, family Exam Limitations: no limitations Patient Subjective Stated Complaint: pt here for htn today at home, anxious, took anxiety meds without relief. chest pain for a short period of time today, none now, dizzy when moves Triage Nursing Assessment: pt walked in, anxious, resp easy, skin w/d pink. hr regular, no edema, moves all ext well Physician History: patient feeling shaky today; didn't feel well yesterday; no CP or SOB; checked BP and elevated; placed on diuretic 1 week ago; o other changes in meds; no travel; no exposures; no fever Timing/Duration: today, gradual onset, worse Severity: moderate Modifying Factors: Improves With: medication Associated Symptoms: other (shaky) Allergies/Adverse Reactions: No Known Drug Allergies Allergy (Verified 03/22/17 16:16) Home Medications: Atorvastatin Calcium 40 mg PO DAILY 09/26/15 [History] Clonazepam 0.5 mg [Klonopin 0.5 MG] 0.5 mg PO HS 09/26/15 [History] Losartan Potassium 50 mg [Cozaar 50 MG] 50 mg PO HS 09/26/15 [History] Omeprazole 20 MG [Prilosec 20 mg] 20 mg PO DAILY 09/26/15 [History] Escitalopram Oxalate [Lexapro] 10 mg PO DAILY 11/09/15 [History] Aspirin 81 gm Chew [Baby Aspirin 81 mg Chew] 81 mg PO DAILY 05/24/16 [ History] Warfarin Sodium 3 mg [Coumadin 3 MG] 2.5 mg PO DAILY@1800 03/22/17 [ History] Hx Tetanus, Diphtheria Vaccination/Date Given: No Hx Influenza Vaccination/Date Given: No Hx Pneumococcal Vaccination/Date Given: No Immunizations Up to Date: Yes - Review of Systems Constitutional: No Symptoms Eyes: No Symptoms Ears, Nose, & Throat: No Symptoms Respiratory: No Cough, No Dyspnea, No Wheezing Cardiac: Palpitations, No Chest Pain, No Edema, No Syncope Abdominal/Gastrointestinal: No Abdominal Pain, No Nausea, No Vomiting, No Diarrhea Genitourinary Symptoms: No Symptoms Musculoskeletal: No Symptoms Skin: No Symptoms Neurological: Dizziness, No Headache, No Paralysis, No Seizure, No Vertigo Psychological: Anxiety, No Suicidal Ideations, No Homicidal Ideations Endocrine: No Symptoms Hematologic/Lymphatic: No Symptoms Immunological/Allergic: No Symptoms - Past Medical History Pertinent Past Medical History: Yes Neurological History: No Pertinent History ENT History: Cataracts Cardiac History: Congestive Heart Failure, Coronary Artery Disease, High Cholesterol, Hypertension, Myocardial Infarction ([place]) Respiratory History: CHF, Pneumonia Endocrine Medical History: No Pertinent History Musculoskeletal History: Osteoarthritis, Other GI Medical History: Diverticulitis, Diverticulosis, Gallbladder Disease History: Other Psycho-Social History: Anxiety, Depression Female Reproductive Disorders: No Pertinent History Other Medical History: scleraderma - Past Surgical History Past Surgical History: Yes Neuro Surgical History: No Pertinent History Cardiac: CABG, Cardiac Catheterization, Valve Replacement Respiratory: No Pertinent History Gastrointestinal: Other Genitourinary: No Pertinent History Musculoskeletal: No Pertinent History Female Surgical History: No Pertinent History Other Surgical History: mitral valve replacement x 2, colonoscopy and EGD 2 weeks ago - Social History Smoking Status: Never smoker How long have you smoked: 50 YEARS Exposure to second hand smoke: No Alcohol Use: Socially Drug Use: none Patient Lives Alone: No Significant Family History: hypertension - Female History Hx Last Menstrual Period: post Hx Now: No - Nursing Vital Signs Nursing Vital Signs: Initial Vital Signs Temperature 97.9 F 03/22/17 16:11 Pulse Rate 85 03/22/17 16:11 Respiratory Rate 16 03/22/17 16:11 Blood Pressure 186/60 03/22/17 16:11 O2 Sat by Pulse Oximetry 99 03/22/17 16:11 Pain Scale Pain Intensity 0 - Physical Exam General Appearance: mild distress, alert, anxiety Eye Exam: PERRL/EOMI, eyes nml inspection, other (fundio benign), No photophobia Ears, Nose, Throat Exam: normal ENT inspection, TMs normal, pharynx normal, moist mucous membranes Neck Exam: normal inspection, non-tender, supple, full range of motion, No meningismus, No carotid bruit, No JVD Respiratory Exam: normal breath sounds, lungs clear, airway intact, No chest tenderness, No respiratory distress, No rhonchi, No wheezing Cardiovascular Exam: regular rate/rhythm, normal heart sounds, normal peripheral pulses, murmur (from valve and with clicks), capillary refill <2 sec Gastrointestinal/Abdomen Exam: soft, normal bowel sounds, No tenderness, No guarding, No rebound, No organomegaly Pelvic Exam: deferred Rectal Exam: deferred Back Exam: normal inspection, normal range of motion, No CVA tenderness, No vertebral tenderness Extremity Exam: normal inspection, normal range of motion, No francia's sign, No pedal edema Neurologic Exam: alert, oriented x 3, cooperative, 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 tested, normal mood/affect, nml cerebellar function, nml station & gait Skin Exam: normal color, warm, dry, No rash, No petechiae, No cyanosis SpO2 Interpretation: normal SpO2: 99 Oxygen Delivery: Room Air - Course Nursing assessment & vital signs reviewed: Yes EKG Interpreted by Me: RATE (77), Sinus Rhythm, Right Dumas Deviation, Right Bundle Branch Block, Non-specific ST Changes, Other (unchanged from 01-11-17) Rhythm Strip: Rate (76), Normal Sinus Rhythm - Radiology Exams Chest X-ray Interpretation: Reviewed by me, Teleradiologist Report, No Pneumonia, No Pneumothorax, Nml Heart Size, No Infiltrates, Other (hyperinflated nad) Ordered Tests: Active Orders 24 hr Category Date Time Status Information Clerk Brokerage STAT Care 03/22/17 16:14 Active EKG-ER Only STAT Care 03/22/17 16:13 Active IV Insertion STAT Care 03/22/17 16:13 Active Pulse Oximetry (ED) STAT Care 03/22/17 16:13 Active Re-Check Vital Signs STAT Care 03/22/17 16:13 Active CHEST 1 VIEW (PORTABLE) Stat Exams 03/22/17 16:14 Completed CBC W DIFF Stat Lab 03/22/17 16:20 Completed CMP Stat Lab 03/22/17 16:20 Completed MAGNESIUM Stat Lab 03/22/17 16:20 Completed NT PRO BNP Stat Lab 03/22/17 16:20 Completed PROTIME WITH INR Stat Lab 03/22/17 16:20 Completed PTT Stat Lab 03/22/17 16:20 Completed TROPONIN Q3H Lab 03/22/17 16:20 Completed TROPONIN Q3H Lab 03/22/17 19:15 Ordered TROPONIN Q3H Lab 03/22/17 22:15 Ordered TROPONIN Q3H Lab 03/23/17 01:15 Ordered TROPONIN Q3H Lab 03/23/17 04:15 Ordered Medication Summary Generic Name Dose Route Start Last Admin Trade Name Freq PRN Reason Stop Dose Admin Sodium Chloride 1,000 mls @ 50 mls/hr 03/22/17 16:15 03/22/17 16:35 Sodium Chloride 0.9% 1000 Ml IV 04/21/17 16:14 50 mls/hr .Q20H MIREILLE Administration Potassium Chloride 40 meq 03/23/17 10:00 Potassium Chl 40 Meq/30 Ml Oral Solution PO 04/22/17 09:59 DAILY MIREILLE Discontinued Medications Generic Name Dose Route Start Last Admin Trade Name Duran CARREONN Reason Stop Dose Admin Lorazepam 1 mg 03/22/17 16:18 03/22/17 16:36 Ativan 1 Mg PO 03/22/17 16:19 1 mg STAT ONE Administration Lorazepam Confirm 03/22/17 16:33 Ativan 1 Mg Administered 03/22/17 16:34 Dose 1 mg .ROUTE .STK-MED ONE Metoprolol Succinate 25 mg 03/22/17 16:13 03/22/17 16:35 Toprol-Xl 25mg Tablets PO 03/22/17 16:14 25 mg STAT ONE Administration Metoprolol Succinate Confirm 03/22/17 16:33 Toprol-Xl 25mg Tablets Administered 03/22/17 16:34 Dose 25 mg .ROUTE .STK-MED ONE Nitroglycerin 1 gm 03/22/17 16:13 03/22/17 17:07 Nitro-Bid 2% Ud Packets TOP 03/22/17 16:14 Not Given STAT ONE Lab/Rad Data: Laboratory Result Diagrams 03/22/17 16:20 03/22/17 16:20 Laboratory Results 03/22/17 03/22/17 03/22/17 Range/Units 16:20 16:20 16:20 WBC (4.0-10.5) K/mm3 RBC (4.1-5.4) M/mm3 Hgb (12.0-16.0) gm/dl Hct (35-47) % MCV (78-100) fl MCH (26-32) pg MCHC (32-36) g/dl RDW (11.5-14.0) % Plt Count (150-450) K/mm3 MPV (6-9.5) fl Gran % (36.0-66.0) % Lymphocytes % (24.0-44.0) % Monocytes % (0.0-12.0) % Eosinophils % (0.00-5.0) % Basophils % (0.0-0.4) % Basophils # (0-0.4) INR 2.21 (0.8-3.0) APTT 37.5 H (25.3-37.0) SECONDS Sodium 144 (136-145) mEq/L Potassium 2.9 L* (3.5-5.1) mEq/L Chloride 105 (98-107) mEq/L Carbon Dioxide 22.9 (21-32) mEq/L Anion Gap 16.9 H (5-15) MEQ/L BUN 30 H (9-20) mg/dL Creatinine 1.46 H (0.55-1.30) mg/dl Estimated GFR 37 ML/MIN Glucose 187 H (70-110) MG/DL Calcium 9.7 (8.5-10.1) mg/dL Magnesium 1.8 (1.8-2.4) mg/dL Total Bilirubin 0.60 (0.2-1.0) mg/dL AST 41 H (15-37) U/L ALT 41 (12-78) U/L Alkaline Phosphatase 116 (46-116) U/L Troponin I < 0.017 (0.000-0.056) ng/ml NT-Pro-B Natriuret Pep 362 H (0-125) pg/ml Serum Total Protein 7.9 (6.4-8.2) gm/dL Albumin 4.5 (3.4-5.0) g/dL 03/22/17 Range/Units 16:20 WBC 7.8 (4.0-10.5) K/mm3 RBC 4.65 (4.1-5.4) M/mm3 Hgb 12.9 (12.0-16.0) gm/dl Hct 40.5 (35-47) % MCV 87.1 (78-100) fl MCH 27.7 (26-32) pg MCHC 31.9 L (32-36) g/dl RDW 16.7 H (11.5-14.0) % Plt Count 204 (150-450) K/mm3 MPV 10.8 H (6-9.5) fl Gran % 70.4 H (36.0-66.0) % Lymphocytes % 17.6 L (24.0-44.0) % Monocytes % 7.6 (0.0-12.0) % Eosinophils % 3.9 (0.00-5.0) % Basophils % 0.5 (0.0-0.4) % Basophils # 0.04 (0-0.4) INR (0.8-3.0) APTT (25.3-37.0) SECONDS Sodium (136-145) mEq/L Potassium (3.5-5.1) mEq/L Chloride (98-107) mEq/L Carbon Dioxide (21-32) mEq/L Anion Gap (5-15) MEQ/L BUN (9-20) mg/dL Creatinine (0.55-1.30) mg/dl Estimated GFR ML/MIN Glucose (70-110) MG/DL Calcium (8.5-10.1) mg/dL Magnesium (1.8-2.4) mg/dL Total Bilirubin (0.2-1.0) mg/dL AST (15-37) U/L ALT (12-78) U/L Alkaline Phosphatase (46-116) U/L Troponin I (0.000-0.056) ng/ml NT-Pro-B Natriuret Pep (0-125) pg/ml Serum Total Protein (6.4-8.2) gm/dL Albumin (3.4-5.0) g/dL reviewed - Progress Progress: improved (aafter meds), re-examined (after meds) Progress Note: 03/22/17 16:27 at bedside; EKG done NAD; xr and labs pending; meds given ; will monito and recheck 03/22/17 16:50 after meds BP and VS improved; feeling better; EKG and cxr ok no anemia 03/22/17 17:08 K+= 2.9; low so will give K+ PO and recheck 03/22/17 17:17 troponin ok; renal function mildly elevated BUN and Cr; treatment plan discussed with patient and ; feeling much better; instructions given Counseled pt/family regarding: lab results, diagnosis, need for follow-up, rad results - Departure Time of Disposition: 17:30 Departure Disposition: Home Clinical Impression: Hypokalemia, Hypertension, Renal insufficiency Condition: Stable Critical Care Time: No Referrals: [facility] SHI [Primary Care Provider] - Instructions: Hyperkalemia Additional Instructions: K+ rich diet; continue meds; keep appt with Dr Delgado; K+ supplements Follow-up with family doctor as directed. Call for appointment. Return if any problems. If you smoke please stop. Call or follow up with your family doctor for assistance if you need it to stop. Please wear your seatbelt when driving. Have a nice day. Thank you for allowing us to participate in your care today. :o) Dr Neeraj Chance Prescriptions: Potassium Bicarbonate/Cit AC [Potassium 25 Meq Tablet Eff] 25 meq PO BID #20 tablet.eff
[2017-03-22] MEDS ORDERED: Toprol-Xl 25MG Tablets ONE (16:33)
[2017-03-22] MEDS ORDERED: Ativan 1 MG ONE (16:33)
[2017-03-22] MEDS ORDERED: Sodium Chloride 0.9% 1000 ML 1,000 ML ONE (16:34)
--- NOTE | 2017-03-22 16:38 | XRAY ---
Indication: Chest pain. Comparison: January 10, 2017. Portable chest remains hyperinflated with chronic lung markings and interval clearing of the left lung infiltrate. No focal infiltrate, consolidation, or large effusion. Heart is not enlarged and again demonstrates previous cardiac valvular replacement surgery. Bony thorax intact again without osteopenia. Impression: Nonacute hyperinflated chest with chronic features.
[2017-03-22 16:47] LABS: INR 2.21 (0.8-3.0); PROTIME 24.8 SECONDS (9.95-12.35)
[2017-03-22 16:50] LABS: PTT 37.5 SECONDS (25.3-37.0)
[2017-03-22 17:03] LABS: ALBUMIN 4.5 g/dL (3.4-5.0); ANION GAP 16.9 MEQ/L (5-15); BILIRUBIN,TOTAL 0.6 mg/dL (0.2-1.0); Carbon Dioxide 22.9 mEq/L (21-32); MAGNESIUM 1.8 mg/dL (1.8-2.4); Total Protein 7.9 gm/dL (6.4-8.2)
[2017-03-22 17:05] LABS: Potassium 2.9 mEq/L (3.5-5.1)
[2017-03-22] MEDS ORDERED: POTASSIUM CHL 40 MEQ/30 ML ORAL SOLUTION ONE (17:26)
[2017-03-22 17:44] VITALS: BP 120/60; PULSE 66; O2SAT 66
[2017-03-23] MEDS ORDERED: POTASSIUM CHL 40 MEQ/30 ML ORAL SOLUTION PO SCH (10:00)
== END 2017-03-22 17:44 | disposition home or self-care (01) ==
LOC: ED 16:10
DX: E87.6 Hypokalemia (principal); I10 Essential (primary) hypertension; N28.9 Disorder of kidney and ureter, unspecified; I25.2 Old myocardial infarction; I50.9 Heart failure, unspecified; I25.10 Atherosclerotic heart disease of native coronary artery without angina pectoris; E78.00 Pure hypercholesterolemia, unspecified; Z79.899 Other long term (current) drug therapy
CPT/HCPCS: 36000; 36415; 71010; 80053; 83735; 83880; 84484; 85025; 85610; 85730; 93005; 93041; 96360; 96361; 99284; 99285; A9270-GY

== ENCOUNTER 2017-05-08 13:41 | Observation (INO) | payer MEDICARE ==
[2017-05-08 14:26] LABS: BASOPHIL % 0.4 % (0.0-0.4); Granulocytes % 78.6 % (36.0-66.0); Lymphocytes % 12.4 % (24.0-44.0); Mean Cell Volume 93.1 fl (78-100); Mean Corpuscular Hemoglobin 28.8 pg (26-32); Monocytes % 6.6 % (0.0-12.0); Platelet Count 250 K/mm3 (150-450); Red Blood Count 2.74 M/mm3 (4.1-5.4); Red Cell Distribution Width 15.3 % (11.5-14.0); White Blood Count 9.5 K/mm3 (4.0-10.5)
--- NOTE | 2017-05-08 14:38 | ERPHSYRPT ---
- History of Present Illness Time Seen by Provider: 05/08/17 14:14 Source: patient Patient Subjective Stated Complaint: dizzines, weakness and aching all over for two days Triage Nursing Assessment: to room per w/c. skin pale, w/d. lucero without difficulty. a/o times three Physician History: CC: fatigue Hx: 71 y/o patient of Dr Aburto. She has hx of valve replacement and takes coumadin. She had prior anemia requiring transfusion and she now feels the same. She has fatigue, LEAL, general weakness. No cough, chest pain, fever or chills. No V/D. Normal urination. Symptoms are moderately severe. Severity: moderate Allergies/Adverse Reactions: No Known Drug Allergies Allergy (Verified 05/08/17 14:03) Home Medications: Atorvastatin Calcium 40 mg PO DAILY 09/26/15 [History] Clonazepam 0.5 mg [Klonopin 0.5 MG] 0.5 mg PO HS 09/26/15 [History] Losartan Potassium 50 mg [Cozaar 50 MG] 50 mg PO HS 09/26/15 [History] Omeprazole 20 MG [Prilosec 20 mg] 20 mg PO DAILY 09/26/15 [History] Escitalopram Oxalate [Lexapro] 10 mg PO DAILY 11/09/15 [History] Aspirin 81 gm Chew [Baby Aspirin 81 mg Chew] 81 mg PO DAILY 05/24/16 [ History] Warfarin Sodium 3 mg [Coumadin 3 MG] 5 mg PO DAILY@1800 03/22/17 [History] Hx Tetanus, Diphtheria Vaccination/Date Given: No Hx Influenza Vaccination/Date Given: Yes Hx Pneumococcal Vaccination/Date Given: Yes Immunizations Up to Date: Yes - Review of Systems Constitutional: Fatigue, Malaise, Weakness, No Fever, No Chills Eyes: No Symptoms Ears, Nose, & Throat: No Symptoms Respiratory: Dyspnea on Exertion (LEAL), No Cough Cardiac: No Chest Pain, No Edema, No Palpitations, No Syncope Abdominal/Gastrointestinal: No Abdominal Pain, No Nausea, No Vomiting, No Diarrhea, No Hematemesis, No Hematochezia Genitourinary Symptoms: No Dysuria, No Hematuria Musculoskeletal: No Symptoms Skin: No Symptoms Neurological: No Symptoms All Other Systems: Reviewed and Negative - Past Medical History Pertinent Past Medical History: Yes Neurological History: No Pertinent History ENT History: Cataracts Cardiac History: Congestive Heart Failure, Coronary Artery Disease, High Cholesterol, Hypertension, Myocardial Infarction (AR) Respiratory History: CHF, Pneumonia Endocrine Medical History: No Pertinent History Musculoskeletal History: Osteoarthritis, Other GI Medical History: Diverticulitis, Diverticulosis, Gallbladder Disease History: Other Psycho-Social History: Anxiety, Depression Female Reproductive Disorders: No Pertinent History Other Medical History: scleraderma - Past Surgical History Past Surgical History: Yes Neuro Surgical History: No Pertinent History Cardiac: CABG, Cardiac Catheterization, Valve Replacement Respiratory: No Pertinent History Gastrointestinal: Other Genitourinary: No Pertinent History Musculoskeletal: No Pertinent History Female Surgical History: No Pertinent History Other Surgical History: mitral valve replacement x 2, colonoscopy and EGD 2 weeks ago - Social History Smoking Status: Never smoker How long have you smoked: 50 YEARS Exposure to second hand smoke: No Alcohol Use: Socially Drug Use: none Patient Lives Alone: No Significant Family History: hypertension - Female History Hx Now: No - Nursing Vital Signs Nursing Vital Signs: Initial Vital Signs Temperature 98.5 F 05/08/17 13:56 Pulse Rate 68 05/08/17 13:56 Respiratory Rate 16 05/08/17 13:56 Blood Pressure 146/54 05/08/17 13:56 O2 Sat by Pulse Oximetry 100 05/08/17 13:56 Pain Scale Pain Intensity 0 - Physical Exam General Appearance: alert Eye Exam: pale conjunctivae Ears, Nose, Throat Exam: normal ENT inspection, moist mucous membranes Neck Exam: normal inspection, non-tender, supple Respiratory Exam: normal breath sounds Cardiovascular Exam: regular rate/rhythm Gastrointestinal/Abdomen Exam: soft, No tenderness, No distention Back Exam: normal inspection Extremity Exam: normal inspection, normal range of motion Neurologic Exam: alert, oriented x 3, cooperative, 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 nml as tested, sensation nml, No motor deficits Skin Exam: warm, dry, pale, No rash SpO2 Interpretation: normal SpO2: 100 Oxygen Delivery: Room Air - Course Nursing assessment & vital signs reviewed: Yes EKG Interpreted by Me: RATE (66), Sinus Rhythm, Right Bundle Branch Block (old) - Radiology Exams cxr X-ray Interpretation: Teleradiologist Report, Negative Ordered Tests: Active Orders 24 hr Category Date Time Status EKG-ER Only STAT Care 05/08/17 14:14 Active IV Insertion STAT Care 05/08/17 14:14 Active CHEST 1 VIEW (PORTABLE) Stat Exams 05/08/17 14:38 Completed CBC W DIFF Stat Lab 05/08/17 14:10 Completed CMP Stat Lab 05/08/17 14:10 Completed PROTIME WITH INR Stat Lab 05/08/17 14:10 Completed Medication Summary Discontinued Medications Generic Name Dose Route Start Last Admin Trade Name Duran PRN Reason Stop Dose Admin Famotidine 20 mg 05/08/17 15:36 05/08/17 15:50 Pepcid 20 Mg Vial IV 05/08/17 15:37 20 mg STAT ONE Administration Famotidine Confirm 05/08/17 15:44 Pepcid 20 Mg Vial Administered 05/08/17 15:45 Dose 20 mg IV .STK-MED ONE Phytonadione 5 mg 05/08/17 15:38 05/08/17 15:49 Vitamin K 10 Mg/Ml PO 05/08/17 15:39 5 mg STAT ONE Administration Phytonadione Confirm 05/08/17 15:44 Vitamin K 10 Mg/Ml Administered 05/08/17 15:45 Dose 10 mg .ROUTE .STK-MED ONE Lab/Rad Data: Laboratory Result Diagrams 05/08/17 14:10 05/08/17 14:10 Laboratory Results 05/08/17 05/08/17 05/08/17 Range/Units 14:10 14:10 14:10 WBC 9.5 (4.0-10.5) K/mm3 RBC 2.74 L (4.1-5.4) M/mm3 Hgb 7.9 L (12.0-16.0) gm/dl Hct 25.5 L (35-47) % MCV 93.1 (78-100) fl MCH 28.8 (26-32) pg MCHC 31.0 L (32-36) g/dl RDW 15.3 H (11.5-14.0) % Plt Count 250 (150-450) K/mm3 MPV 11.0 H (6-9.5) fl Gran % 78.6 H (36.0-66.0) % Lymphocytes % 12.4 L (24.0-44.0) % Monocytes % 6.6 (0.0-12.0) % Eosinophils % 2.0 (0.00-5.0) % Basophils % 0.4 (0.0-0.4) % Basophils # 0.04 (0-0.4) INR > 10.00 H* (0.8-3.0) Sodium 141 (136-145) mEq/L Potassium 3.6 (3.5-5.1) mEq/L Chloride 106 (98-107) mEq/L Carbon Dioxide 23.4 (21-32) mEq/L Anion Gap 15.4 H (5-15) MEQ/L BUN 39 H (9-20) mg/dL Creatinine 1.42 H (0.55-1.30) mg/dl Estimated GFR 39 ML/MIN Glucose 175 H (70-110) MG/DL Calcium 9.0 (8.5-10.1) mg/dL Total Bilirubin 0.40 (0.2-1.0) mg/dL AST 28 (15-37) U/L ALT 17 (12-78) U/L Alkaline Phosphatase 82 (46-116) U/L Serum Total Protein 7.0 (6.4-8.2) gm/dL Albumin 3.8 (3.4-5.0) g/dL - Progress Progress Note: 05/08/17 15:52 No active bleeding here. Called Dr Oliver Steele who advise transfuse 2 units PRBS as pt has heart disease and symptomatic anemia and is hyperanticoagulated. He advised 5mg po vit K. Called Dr Aburto who agrees for observation. 05/08/17 15:53 Discussed risk of blood transfusion to include infection, allergic reaction. Discussed with : Lamonte Will see patient in: hospital (observation) Counseled pt/family regarding: lab results, diagnosis, need for follow-up - Departure Time of Disposition: 15:53 Departure Disposition: Observation Clinical Impression: Anemia, Warfarin-induced coagulopathy Condition: Stable Critical Care Time: No Referrals: EMMA ABURTO [Primary Care Provider] -
[2017-05-08 14:51] LABS: ALBUMIN 3.8 g/dL (3.4-5.0); ANION GAP 15.4 MEQ/L (5-15); BILIRUBIN,TOTAL 0.4 mg/dL (0.2-1.0); Carbon Dioxide 23.4 mEq/L (21-32); Potassium 3.6 mEq/L (3.5-5.1)
--- NOTE | 2017-05-08 15:04 | XRAY ---
Indication: Dyspnea on exertion and dizziness. Comparison: March 22, 2017. Portable chest unchanged again hyperinflated with chronic lung markings and scattered tiny calcified granulomas. No focal infiltrate, consolidation, or large effusion. Heart is not enlarged again demonstrating previous cardiac valvular replacement surgery. Bony thorax intact with mild osteopenia. Impression: Stable nonacute chest with chronic features.
[2017-05-08 15:09] LABS: PROTIME 127.1 SECONDS (9.95-12.35)
[2017-05-08 15:11] LABS: INR > 10.00 (0.8-3.0)
[2017-05-08] MEDS ORDERED: Pepcid 20 MG VIAL IV ONE ×2 (15:36→15:44)
[2017-05-08] MEDS ORDERED: Vitamin K 10 MG/ML PO ONE (15:38)
[2017-05-08] MEDS ORDERED: Vitamin K 10 MG/ML ONE (15:44)
[2017-05-08] MEDS ORDERED: Sodium Chloride 0.9% 1000 ML 1,000 ML IV SCH (16:29)
[2017-05-08] MEDS ORDERED: TYLENOL 325 MG PO PRN (21:03)
[2017-05-08] MEDS ORDERED: Cozaar 50 MG PO SCH (22:00)
[2017-05-08] MEDS: Klonopin 0.5 MG PO SCH (22:13)
[2017-05-08] MEDS ORDERED: BENADRYL 50 MG/ML IV ONE (23:37)
[2017-05-08] MEDS ORDERED: Zofran 4 MG/2 ML VIAL IV PRN (23:39)
[2017-05-09] MEDS ORDERED: Pepcid 20 MG PO ONE (00:50)
[2017-05-09 04:26] LABS: BASOPHIL % 0.6 % (0.0-0.4); Eosinophil % 3.7 % (0.00-5.0); Lymphocytes % 15.3 % (24.0-44.0); Mean Cell Volume 89.3 fl (78-100); Mean Platelet Volume 10.2 fl (6-9.5); Monocytes % 8.4 % (0.0-12.0); Platelet Count 171 K/mm3 (150-450); Red Blood Count 3.28 M/mm3 (4.1-5.4); Red Cell Distribution Width 15.8 % (11.5-14.0); White Blood Count 8.4 K/mm3 (4.0-10.5)
[2017-05-09 04:31] LABS: Mean Corpuscular Hemoglobin 28.6 pg (26-32)
[2017-05-09 05:34] LABS: INR 2.8 (0.8-3.0); PROTIME 31.5 SECONDS (9.95-12.35)
[2017-05-09] MEDS: Klonopin 0.5 MG PO SCH (07:22)
[2017-05-09 07:44] VITALS: BP 98/47; PULSE 56; O2SAT 94
--- NOTE | 2017-05-09 07:54 | PCM.SSS ---
History of Present Illness - Chief Complaint Chief Complaint: symptomatic anemia History of Present Illness: is a 71 year old female pt of mine from [facility] who felt tired, achy, and flu like for the past 2 days. She had felt like this before when in need of a blood transfusion, so she came to the ER, was found to have a hgb of 7.9, and was transfused [address] Steele for CAD and hx mechanical heart valve. Her inr AT admission was >10. She denies any bleeding. Her coumadin was held last night and she was given 5mg vit K po. This morning her INR is 2.8. - Review of Systems Constitutional: Fatigue Abdominal/Gastrointestinal: Diarrhea (x1 this morning) Neurological: Other (pruritis with blood transfusion) Psychological: No Anxiety, No Depression, No Suicidal Ideations All Other Systems: Reviewed and Negative Medications & Allergies Home Medications: Home Medication List Atorvastatin Calcium 40 mg PO DAILY 09/26/15 [History Confirmed 05/08/17] Clonazepam 0.5 mg [Klonopin 0.5 MG] 0.5 mg PO ACHS 09/26/15 [History Confirmed 05/08/17] Losartan Potassium 50 mg [Cozaar 50 MG] 50 mg PO HS 09/26/15 [History Confirmed 05/08/17] Omeprazole 20 MG [Prilosec 20 mg] 20 mg PO DAILY 09/26/15 [History Confirmed ] Escitalopram Oxalate [Lexapro] 10 mg PO DAILY 11/09/15 [History Confirmed ] Aspirin 81 gm Chew [Baby Aspirin 81 mg Chew] 81 mg PO DAILY 05/24/16 [ History Confirmed 05/08/17] Ferrous Sulfate 325 mg [Feosol 325 mg] 325 mg PO DAILY #30 tablet [Rx Confirmed 05/08/17] Warfarin Sodium 3 mg [Coumadin 3 MG] 4 mg PO DAILY@1800 #30 tablet [Rx] Allergies/Adverse Reactions: Allergies Allergy/AdvReac Type Severity Reaction Status Date / Time No Known Drug Allergies Allergy Verified 05/08/17 16:33 - Past Medical History Past Medical History: Yes Neurological History: No Pertinent History ENT History: Cataracts Cardiac History: Congestive Heart Failure, Coronary Artery Disease, High Cholesterol, Hypertension, Myocardial Infarction (AR) Respiratory History: CHF, Pneumonia Endocrine Medical History: No Pertinent History Musculoskelatal History: Osteoarthritis, Other GI Medical History: Diverticulitis, Diverticulosis, Gallbladder Disease History: Other Pyscho-Social History: Anxiety, Depression Reproductive Disorders: No Pertinent History Comment: scleraderma - Female History Are you now?: No - Past Surgical History Past Surgical History: Yes Neuro Surgical History: No Pertinent History Cardiac History: CABG, Cardiac Catheterization, Valve Replacement Respiratory Surgery: No Pertinent History GI Surgical History: Other Genitourinary Surgical Hx: No Pertinent History Musculskeletal Surgical Hx: No Pertinent History Female Surgical History: No Pertinent History Other Surgical History: mitral valve replacement x 2, colonoscopy and EGD 2 weeks ago - Social History Smoking Status: Former smoker How long have you smoked: 50 YEARS Exposure to second hand smoke: No Alcohol: None Drug Use: none Significant Family History: hypertension - Physical Exam Vital Signs: Vital Signs - 24 hr Temp Pulse Resp BP Pulse Ox 05/09/17 07:43 98.3 F 56 L 18 98/47 94 L 05/09/17 04:00 97.9 F 62 16 142/65 96 05/09/17 00:00 98.0 F 59 L 16 131/70 97 05/08/17 20:00 98.0 F 66 17 120/53 97 05/08/17 16:37 18 05/08/17 16:29 98.0 F 66 18 141/65 99 05/08/17 16:20 98.0 F 66 141/65 05/08/17 16:15 98 F 66 16 141/65 99 05/08/17 15:57 76 16 125/77 99 05/08/17 15:54 100 05/08/17 14:55 66 16 128/48 99 05/08/17 13:56 98.5 F 68 16 146/54 100 General Appearance: no apparent distress, alert Neurologic Exam: oriented x 3, cooperative Eye Exam: eyes nml inspection Neck Exam: normal inspection, non-tender, No lymphadenopathy Respiratory Exam: normal breath sounds, lungs clear, No crackles/rales, No rhonchi, No wheezing Cardiovascular Exam: regular rate/rhythm, normal heart sounds, No murmur Gastrointestinal/Abdomen Exam: soft, normal bowel sounds, No tenderness, No distention, No mass Back Exam: normal inspection Extremity Exam: normal inspection, No pedal edema, No swelling Skin Exam: normal color, warm, dry, No rash Results - Labs Lab/Micro Results: Lab Results-Last 24 Hours 05/09/17 05/09/17 Range/Units 04:22 04:22 WBC 8.4 (4.0-10.5) K/mm3 RBC 3.28 L (4.1-5.4) M/mm3 Hgb 9.4 L (12.0-16.0) gm/dl Hct 29.3 L (35-47) % MCV 89.3 (78-100) fl MCH 28.6 (26-32) pg MCHC 32.1 (32-36) g/dl RDW 15.8 H (11.5-14.0) % Plt Count 171 (150-450) K/mm3 MPV 10.2 H (6-9.5) fl Gran % 72.0 H (36.0-66.0) % Lymphocytes % 15.3 L (24.0-44.0) % Monocytes % 8.4 (0.0-12.0) % Eosinophils % 3.7 (0.00-5.0) % Basophils % 0.6 (0.0-0.4) % Basophils # 0.05 (0-0.4) INR 2.80 (0.8-3.0) Assessment/Plan (1) Anemia Current Visit: Yes Status: Acute Qualifiers: Anemia type: iron deficiency Iron deficiency anemia type: chronic blood loss Qualified Code(s): D50.0 - Iron deficiency anemia secondary to blood loss (chronic) Assessment & Plan: No distinct blood loss, denies melena/hematochezia. Will have her recheck CBC next week. Code(s): D64.9 - ANEMIA, UNSPECIFIED (2) Warfarin-induced coagulopathy Current Visit: Yes Status: Acute Assessment & Plan: INR nl this morning, advised she can restart coumadin but will need to recheck it tomorrow. Further instructions from Dr. Steele. If she can't reach him today, she is to restart coumadin at 4mg/d. Code(s): D68.9 - COAGULATION DEFECT, UNSPECIFIED; T45.515A - ADVERSE EFFECT OF ANTICOAGULANTS, INITIAL ENCOUNTER (3) pruritis Current Visit: Yes Status: Acute Assessment & Plan: Likely a mild transfusion reaction. If she requires a transfusion in the future , she is to start benadryl prior to transfusion. Hospital Summary - Hospital Course Hospital Course: Pt admitted with INR > 10 and Hgb 7.9. She was given 2 units PRBC and vit K 5 mg po. Her INR this morning is 2.8 (pt has mechanical valve). Will be discharged home, INR to be checked in the morning (future orders to be provided by Dr. Steele). Pt states she will probably talk with Dr. Steele's office today regarding her coumadin dosage; if not she will resume 4mg/d (pt was on 3.5 and 4mg alternating, then last month was changed to 5mg/d). - Vitals & Intake/Output Vital Signs: Vital Signs Temperature 98.3 F 05/09/17 07:43 Pulse Rate 56 L 05/09/17 07:43 Respiratory Rate 18 05/09/17 07:43 Blood Pressure 98/47 05/09/17 07:43 O2 Sat by Pulse Oximetry 94 L 05/09/17 07:43 Intake & Output: Intake & Output 05/06/17 05/07/17 05/08/17 05/09/17 11:59 11:59 11:59 11:59 Intake Total 1192 Balance 1192 Weight 67.132 kg - Lab Result Diagrams: 05/09/17 04:22 05/08/17 14:10 Lab Results-Last 24 Hrs: Lab Results-Last 24 Hours 05/09/17 05/09/17 Range/Units 04:22 04:22 WBC 8.4 (4.0-10.5) K/mm3 RBC 3.28 L (4.1-5.4) M/mm3 Hgb 9.4 L (12.0-16.0) gm/dl Hct 29.3 L (35-47) % MCV 89.3 (78-100) fl MCH 28.6 (26-32) pg MCHC 32.1 (32-36) g/dl RDW 15.8 H (11.5-14.0) % Plt Count 171 (150-450) K/mm3 MPV 10.2 H (6-9.5) fl Gran % 72.0 H (36.0-66.0) % Lymphocytes % 15.3 L (24.0-44.0) % Monocytes % 8.4 (0.0-12.0) % Eosinophils % 3.7 (0.00-5.0) % Basophils % 0.6 (0.0-0.4) % Basophils # 0.05 (0-0.4) INR 2.80 (0.8-3.0) - Discharge Disposition: Home, Self-Care Condition: Stable Prescriptions: Continue Clonazepam 0.5 mg [Klonopin 0.5 MG] 0.5 mg PO ACHS Losartan Potassium 50 mg [Cozaar 50 MG] 50 mg PO HS Atorvastatin Calcium 40 mg PO DAILY Omeprazole 20 MG [Prilosec 20 mg] 20 mg PO DAILY Escitalopram Oxalate [Lexapro] 10 mg PO DAILY Aspirin 81 gm Chew [Baby Aspirin 81 mg Chew] 81 mg PO DAILY Ferrous Sulfate 325 mg [Feosol 325 mg] 325 mg PO DAILY #30 tablet Changed Warfarin Sodium 3 mg [Coumadin 3 MG] 4 mg PO DAILY@1800 #30 tablet Follow up with: EMMA SHI [Primary Care Provider] -
[2017-05-09] MEDS ORDERED: Pepcid 20 MG PO SCH (08:00)
[2017-05-09] MEDS ORDERED: BABY ASPIRIN 81 MG CHEW PO SCH (10:00)
[2017-05-09] MEDS ORDERED: ECOTRIN 81 MG PO SCH (10:00)
[2017-05-09] MEDS ORDERED: NON-FORMULARY ITEM (Omeprazole 20 Mg [Prilosec 20 Mg] 20 MG) PO SCH (10:00)
[2017-05-09] MEDS ORDERED: FEOSOL 325 MG PO SCH (10:00)
[2017-05-09] MEDS ORDERED: Lexapro 10 MG PO SCH (10:00)
[2017-05-09] MEDS ORDERED: Protonix 40MG Tablet PO SCH (10:00)
== END 2017-05-09 08:40 | disposition home or self-care (01) ==
LOC: ED 13:41 → MED SURG 16:15
PROVIDERS: ADMIT Family Medicine; ATTEND Family Medicine
DX: D50.0 Iron deficiency anemia secondary to blood loss (chronic) (principal); D68.9 Coagulation defect, unspecified; T45.515A Adverse effect of anticoagulants, initial encounter; L29.9 Pruritus, unspecified; I25.810 Atherosclerosis of coronary artery bypass graft(s) without angina pectoris; Z95.4 Presence of other heart-valve replacement; I50.9 Heart failure, unspecified; I10 Essential (primary) hypertension; F41.8 Other specified anxiety disorders; M19.90 Unspecified osteoarthritis, unspecified site; Z87.891 Personal history of nicotine dependence; Z79.899 Other long term (current) drug therapy
CPT/HCPCS: 36000; 36415; 36430; 71010; 80053; 85025; 85610; 86850; 86900; 86901; 86922; 93005; 96374; 99285; G0378; J1200; J3430; P9016; A9270-GY

== ENCOUNTER 2017-11-20 12:03 | Observation (INO) | payer MEDICARE ==
[2017-11-20 13:41] LABS: BASOPHIL % 0.5 % (0.0-0.4); Basophil (Absolute #) 0.03 (0-0.4); Eosinophil % 5.1 % (0.00-5.0); Eosinophil (Absolute #) 0.32 (0-0.5); Granulocyte Absolute (ANC) 4.28 (1.4-6.9); Granulocytes % 68.7 % (36.0-66.0); Hematocrit 37.2 % (35-47); Lymphocyte (Absolute #) 1.16 (1.0-4.6); Lymphocytes % 18.6 % (24.0-44.0); Mean Cell Volume 89.9 fl (78-100); Mean Corpuscular Hgb Concent. 32.3 g/dl (32-36); Mean Platelet Volume 11.7 fl (6-9.5); Monocyte (Absolute #) 0.44 (0.0-1.3); Monocytes % 7.1 % (0.0-12.0); Platelet Count 142 K/mm3 (150-450); Red Blood Count 4.14 M/mm3 (4.1-5.4); Red Cell Distribution Width 14.4 % (11.5-14.0); White Blood Count 6.2 K/mm3 (4.0-10.5)
[2017-11-20 14:04] LABS: ALBUMIN 4.2 g/dL (3.5-5.0); BILIRUBIN,TOTAL 0.4 mg/dL (0.2-1.3); Creatinine 1 1.19 mg/dL (0.52-1.04); Potassium 4.2 mmol/L (3.5-5.1); Total Protein 7.1 g/dL (6.3-8.2)
[2017-11-20 14:17] LABS: INR 2.93 (0.8-3.0)
[2017-11-20] MEDS: Protonix 40MG Tablet PO SCH (16:01)
[2017-11-20] MEDS: Coumadin 3 MG PO SCH (18:08)
[2017-11-20 20:35] LABS: Appearance CLEAR (CLEAR); Bilirubin NEGATIVE (NEGATIVE); Glucose NEGATIVE (NEGATIVE); Ketones NEGATIVE (NEGATIVE); Leukocyte Esterase TRACE (NEGATIVE); Nitrite POSITIVE (NEGATIVE); Protein,Urine Dip NEGATIVE (Negative); Urobilinogen NORMAL mg/dL (0-1)
[2017-11-20 20:36] LABS: Blood TRACE NON-HEM Ery/ul (0-5)
[2017-11-20 20:37] LABS: Bacteria MANY /HPF (NEGATIVE); Epithelial Cells FEW /HPF (FEW); Mucus SLIGHT /HPF (NEGATIVE)
[2017-11-20] MEDS: ECOTRIN 81 MG PO SCH (21:23)
[2017-11-20] MEDS: FEOSOL 325 MG PO SCH (21:23)
[2017-11-20] MEDS: NORVASC 5 MG PO SCH (21:24)
[2017-11-20] MEDS: Klonopin 0.5 MG PO SCH (21:24)
[2017-11-20] MEDS: ROCEPHIN 1 Gm-D5w 50 ml Bag** 1 G/50 ML IVPB IV SCH (21:32)
[2017-11-20] MEDS ORDERED: ZOCOR 20MG PO SCH (22:00)
--- NOTE | 2017-11-21 08:30 | PCM.NOTE ---
Date and Time: 11/21/17824 Subjective Assessment: Pt admitted from office yesterday with bradycardia (HR low 40s). She was having a hard time walking - stumbling- so was brought to [facility] for observation. It was unclear initially whether she had been on beta blockers or not. However this morning she states she was on labetalol 100 mg every morning and recently Dr. Delgado started her on carvedilol 3.125mg 1 po BID. Per the pharmacy database, she had labetalol 100 po BID rx'd last in 2015, and she filled 1 mo of carvedilol in Apr 2017, 1 mo in Jul 2017, and 1 mo in September 2017. She was bradycardic into the 50s overnight. This morning her HR is 38-44. She states she is feeling a little better. She was found to have a UTI yesterday and given 1g rocephin IV. - Review of Systems Constitutional: No Fever Cardiac: Other (bradycardia) Objective Exam General Appearance: no apparent distress, alert Neurologic Exam: oriented x 3, cooperative Skin Exam: normal color, warm, dry, No rash Respiratory Exam: normal breath sounds, lungs clear, No crackles/rales, No rhonchi, No wheezing Cardiovascular Exam: normal heart sounds, bradycardia, No murmur Gastrointestinal/Abdomen Exam: soft, normal bowel sounds, No tenderness, No distention Extremity Exam: normal inspection, No pedal edema Back Exam: normal inspection, No rash OBJECTIVE DATA Vital Signs: Vital Signs - 24 hr Temp Pulse Resp BP Pulse Ox 11/21/17 08:00 98.9 F 51 L 18 137/60 96 11/21/17 04:00 98.0 F 50 L 18 134/58 97 11/21/17 00:00 98.3 F 54 L 16 131/60 96 11/20/17 19:58 98.0 F 50 L 16 137/65 96 11/20/17 15:56 98.4 F 52 L 18 126/60 96 11/20/17 13:16 97.8 F 50 L 20 177/72 99 11/20/17 12:34 97.8 F 50 L 20 177/72 99 Pain Assessment - Last Documented Pain Scale Used 0-10 Pain Scale Intake and Output: Intake & Output 11/18/17 11/19/17 11/20/17 11/21/17 11:59 11:59 11:59 11:59 Intake Total 890 Output Total 1500 Balance -610 Weight 66 kg Lab Results: Lab Results-Last 24 Hours 11/20/17 11/20/17 11/20/17 Range/Units 13:26 13:26 13:45 WBC 6.2 (4.0-10.5) K/mm3 RBC 4.14 (4.1-5.4) M/mm3 Hgb 12.0 (12.0-16.0) gm/dl Hct 37.2 (35-47) % MCV 89.9 (78-100) fl MCH 29.0 (26-32) pg MCHC 32.3 (32-36) g/dl RDW 14.4 H (11.5-14.0) % Plt Count 142 L (150-450) K/mm3 MPV 11.7 H (6-9.5) fl Gran % 68.7 H (36.0-66.0) % Eos # (Auto) 0.32 (0-0.5) Absolute Lymphs (auto) 1.16 (1.0-4.6) Absolute Monos (auto) 0.44 (0.0-1.3) Lymphocytes % 18.6 L (24.0-44.0) % Monocytes % 7.1 (0.0-12.0) % Eosinophils % 5.1 H (0.00-5.0) % Basophils % 0.5 (0.0-0.4) % Absolute Granulocytes 4.28 (1.4-6.9) Basophils # 0.03 (0-0.4) PT 34.4 H (9.95-12.35) SECONDS INR 2.93 (0.8-3.0) Sodium 144 (137-145) mmol/L Potassium 4.2 (3.5-5.1) mmol/L Chloride 108 H (98-107) mmol/L Carbon Dioxide 25 (22-30) mmol/L Anion Gap 15.0 (5-15) MEQ/L BUN 31 H (7-17) mg/dL Creatinine 1.19 H (0.52-1.04) mg/dL Estimated GFR 47.1 ML/MIN Glucose 108 H (74-106) mg/dL Calcium 10.0 (8.4-10.2) mg/dL Total Bilirubin 0.40 (0.2-1.3) mg/dL AST 39 H (14-36) U/L ALT 26 (0-35) U/L Alkaline Phosphatase 110 (38-126) U/L Serum Total Protein 7.1 (6.3-8.2) g/dL Albumin 4.2 (3.5-5.0) g/dL Ur Collection Type Urine Color (YELLOW) Urine Appearance (CLEAR) Urine pH (5-6) Ur Specific [place] (1.005-1.025) Urine Protein (Negative) Urine Ketones (NEGATIVE) Urine Blood (0-5) Roger/ul Urine Nitrite (NEGATIVE) Urine Bilirubin (NEGATIVE) Urine Urobilinogen (0-1) mg/dL Ur Leukocyte Esterase (NEGATIVE) Urine Microscopic RBC (0-2) /HPF Urine Microscopic WBC (0-5) /HPF Ur Epithelial Cells (FEW) /HPF Urine Bacteria (NEGATIVE) /HPF Urine Mucus (NEGATIVE) /HPF Urine Glucose (NEGATIVE) mg/dL Specimen Received 11/20/17 Range/Units 18:00 WBC (4.0-10.5) K/mm3 RBC (4.1-5.4) M/mm3 Hgb (12.0-16.0) gm/dl Hct (35-47) % MCV (78-100) fl MCH (26-32) pg MCHC (32-36) g/dl RDW (11.5-14.0) % Plt Count (150-450) K/mm3 MPV (6-9.5) fl Gran % (36.0-66.0) % Eos # (Auto) (0-0.5) Absolute Lymphs (auto) (1.0-4.6) Absolute Monos (auto) (0.0-1.3) Lymphocytes % (24.0-44.0) % Monocytes % (0.0-12.0) % Eosinophils % (0.00-5.0) % Basophils % (0.0-0.4) % Absolute Granulocytes (1.4-6.9) Basophils # (0-0.4) PT (9.95-12.35) SECONDS INR (0.8-3.0) Sodium (137-145) mmol/L Potassium (3.5-5.1) mmol/L Chloride (98-107) mmol/L Carbon Dioxide (22-30) mmol/L Anion Gap (5-15) MEQ/L BUN (7-17) mg/dL Creatinine (0.52-1.04) mg/dL Estimated GFR ML/MIN Glucose (74-106) mg/dL Calcium (8.4-10.2) mg/dL Total Bilirubin (0.2-1.3) mg/dL AST (14-36) U/L ALT (0-35) U/L Alkaline Phosphatase (38-126) U/L Serum Total Protein (6.3-8.2) g/dL Albumin (3.5-5.0) g/dL Ur Collection Type VOID Urine Color LT.YELLOW (YELLOW) Urine Appearance CLEAR (CLEAR) Urine pH 5.0 (5-6) Ur Specific [place] 1.010 (1.005-1.025) Urine Protein NEGATIVE (Negative) Urine Ketones NEGATIVE (NEGATIVE) Urine Blood TRACE NON-HEM (0-5) Roger/ul Urine Nitrite POSITIVE (NEGATIVE) Urine Bilirubin NEGATIVE (NEGATIVE) Urine Urobilinogen NORMAL (0-1) mg/dL Ur Leukocyte Esterase TRACE (NEGATIVE) Urine Microscopic RBC 2-5 (0-2) /HPF Urine Microscopic WBC 10-15 (0-5) /HPF Ur Epithelial Cells FEW (FEW) /HPF Urine Bacteria MANY (NEGATIVE) /HPF Urine Mucus SLIGHT (NEGATIVE) /HPF Urine Glucose NEGATIVE (NEGATIVE) mg/dL Specimen Received 11/20/17 1800 Assessment/Plan (1) Bradycardia Current Visit: Yes Status: Acute Onset Date: ~11/20/17 Assessment & Plan: It's still unclear if she's been taking beta blockers regularly. Will call pharmacy today to confirm when she's been filling her meds. Will discuss with Dr. Steele. If she has been taking 2 beta blockers regularly, may just need to observe until her HR improves. If not, may need to consider pacemaker placement. Code(s): R00.1 - BRADYCARDIA, UNSPECIFIED (2) History of artificial heart valve Current Visit: Yes Status: Acute Assessment & Plan: INR target 2.5-3.5. Code(s): Z95.2 - PRESENCE OF PROSTHETIC HEART VALVE
[2017-11-21] MEDS: Klonopin 0.5 MG PO SCH ×2 (09:45→23:04)
[2017-11-21] MEDS: ROCEPHIN 1 Gm-D5w 50 ml Bag** 1 G/50 ML IVPB IV SCH (09:45)
[2017-11-21] MEDS: ZOCOR 20MG PO SCH (09:46)
[2017-11-21] MEDS: Protonix 40MG Tablet PO SCH (09:46)
[2017-11-21] MEDS ORDERED: Lexapro 10 MG PO SCH (10:00)
[2017-11-21] MEDS ORDERED: NON-FORMULARY ITEM (Omeprazole 20 Mg [Prilosec 20 Mg] 20 MG) PO SCH (10:00)
[2017-11-21] MEDS ORDERED: LIPITOR 40MG PO SCH (10:00)
[2017-11-21] MEDS: Cozaar 50 MG PO SCH (11:33)
[2017-11-21] MEDS: Coumadin 3 MG PO SCH (18:00)
[2017-11-21] MEDS: ECOTRIN 81 MG PO SCH (23:01)
[2017-11-21] MEDS: FEOSOL 325 MG PO SCH (23:01)
[2017-11-21] MEDS: NORVASC 5 MG PO SCH (23:04)
[2017-11-22 07:19] VITALS: O2SAT 98
--- NOTE | 2017-11-22 08:59 | PCM.DS ---
Discharge Summary Date of Admission: 11/20/17 12:03 Admitting Physician: EMMA SHI Primary Care Provider: EMMA SHI Allergies Allergies No Known Drug Allergies Allergy (Verified 05/08/17 16:33) Hospital Summary - Hospital Course Hospital Course: Pt admitted from office wiht HR in the 40s and unclear hx of beta trudi use. Apparently was recently started on coreg 3.125 mg po BID (but may have been taking some atenolol as well). Her HR continues to be in the 40s, into the 30s yesterday at times. some HR in the 50s. I have been discussing with Dr. hanks - will call him today for likely transfer for possible pacemaker placement. - Vitals & Intake/Output Vital Signs: Vital Signs Temperature 98 F 11/22/17 07:18 Pulse Rate 55 L 11/22/17 07:18 Respiratory Rate 18 11/22/17 08:00 Blood Pressure 115/56 11/22/17 07:18 O2 Sat by Pulse Oximetry 98 11/22/17 07:18 Intake & Output: Intake & Output 11/19/17 11/20/17 11/21/17 11/22/17 11:59 11:59 11:59 11:59 Intake Total 1090 900 Output Total 1500 800 Balance -410 100 Weight 66 kg - Lab Result Diagrams: 11/20/17 13:26 11/20/17 13:26 Micro Results-Entire Visit: Microbiology 11/20/17 18:00 Urine Culture - Preliminary Urine, Void NO GROWTH TO DATE - Procedures and Test Procedures and Tests throughout Hospitalization: Therapy Orders & Screens 11/20/17 12:35 EKG ONCE Comment: Discharge Exam General Appearance: no apparent distress, alert Neurologic Exam: oriented x 3, cooperative Skin Exam: normal color, warm, dry, No rash Respiratory Exam: normal breath sounds, lungs clear, No crackles/rales, No rhonchi, No wheezing Cardiovascular Exam: normal heart sounds, bradycardia, No murmur Gastrointestinal/Abdomen Exam: soft, normal bowel sounds, No tenderness, No distention, No mass, No guarding, No rebound Extremity Exam: No pedal edema, No swelling Back Exam: normal inspection, No rash Final Diagnosis/Problem List - Final Discharge Diagnosis/Problem (1) Bradycardia Current Visit: Yes Status: Acute Onset Date: ~11/20/17 Assessment & Plan: Will discuss with director of home care hospice regarding possible transfer. (2) History of artificial heart valve Current Visit: Yes Status: Acute - Discharge Disposition: Home, Self-Care Condition: Stable Prescriptions: No Action Clonazepam 0.5 mg [Klonopin 0.5 MG] 0.5 mg PO BID Losartan Potassium 50 mg [Cozaar 50 MG] 100 mg PO DAILY Atorvastatin Calcium 40 mg PO DAILY Omeprazole 20 MG [Prilosec 20 mg] 20 mg PO DAILY Escitalopram Oxalate [Lexapro] 20 mg PO DAILY Ferrous Sulfate 325 mg [Feosol 325 mg] 325 mg PO HS Warfarin Sodium 3 mg [Coumadin 3 MG] 3 mg PO DAILY@1800 Aspirin [Aspirin EC] 81 mg PO HS [place]-3 Fatty Acids [[place]-3] 1,000 mg PO DAILY FA/Vit C/E/Zinc/Copper/Lut/Ricky [Ocuvel Capsule] 1 each PO DAILY Amlodipine Besylate 5 mg [Norvasc 5 mg] 5 mg PO BID Carvedilol 3.125 mg [Coreg 3.125 MG] 3.125 mg PO BID Follow up with: EMMA SHI [Primary Care Provider] - 1 Week
[2017-11-22] MEDS: Klonopin 0.5 MG PO SCH (09:48)
[2017-11-22] MEDS: Cozaar 50 MG PO SCH (09:48)
[2017-11-22] MEDS: ROCEPHIN 1 Gm-D5w 50 ml Bag** 1 G/50 ML IVPB IV SCH (09:48)
[2017-11-22] MEDS: Protonix 40MG Tablet PO SCH (09:48)
[2017-11-22] MEDS: ZOCOR 20MG PO SCH (09:48)
[2017-11-22 11:17] VITALS: BP 128/59; PULSE 54
== END 2017-11-22 14:49 | disposition home or self-care (01) ==
LOC: MED SURG 12:03
PROVIDERS: ADMIT Family Medicine; ATTEND Family Medicine
DX: R00.1 Bradycardia, unspecified (principal); Z95.2 Presence of prosthetic heart valve; Z79.01 Long term (current) use of anticoagulants; Z79.899 Other long term (current) drug therapy; I12.9 Hypertensive chronic kidney disease with stage 1 through stage 4 chronic kidney disease, or unspecified chronic kidney disease; N18.9 Chronic kidney disease, unspecified; F32.9 Major depressive disorder, single episode, unspecified; I25.10 Atherosclerotic heart disease of native coronary artery without angina pectoris; M10.9 Gout, unspecified
CPT/HCPCS: 36415; 80053; 81000; 85025; 85610; 87077; 87086; 87186; 93005; 93268; J0696; A9270-GY; G0378

== ENCOUNTER 2018-06-12 12:56 | Emergency (ER) | payer MEDICARE ==
[2018-06-12 13:18] LABS: INR 2.09 (0.8-3.0)
[2018-06-12] MEDS ORDERED: Sodium Chloride 0.9% 1000 ML 1,000 ML IV STA (14:26)
[2018-06-12] MEDS ORDERED: Sodium Chloride 0.9% 1000 ML 1,000 ML ONE (14:30)
[2018-06-12 14:35] LABS: BASOPHIL % 0.3 % (0.0-0.4); Basophil (Absolute #) 0.02 (0-0.4); Eosinophil % 6.2 % (0.00-5.0); Eosinophil (Absolute #) 0.37 (0-0.5); Granulocyte Absolute (ANC) 3.94 (1.4-6.9); Granulocytes % 66.4 % (36.0-66.0); Hematocrit 40.3 % (35-47); Hemoglobin 12.4 gm/dl (12.0-16.0); Lymphocyte (Absolute #) 0.99 (1.0-4.6); Lymphocytes % 16.7 % (24.0-44.0); Mean Cell Volume 95.7 fl (78-100); Mean Corpuscular Hemoglobin 29.5 pg (26-32); Mean Corpuscular Hgb Concent. 30.8 g/dl (32-36); Mean Platelet Volume 12.3 fl (6-9.5); Monocyte (Absolute #) 0.62 (0.0-1.3); Monocytes % 10.4 % (0.0-12.0); Platelet Count 115 K/mm3 (150-450); Red Blood Count 4.21 M/mm3 (4.1-5.4); White Blood Count 5.9 K/mm3 (4.0-10.5)
[2018-06-12 14:47] LABS: Appearance CLEAR (CLEAR); Bilirubin NEGATIVE (NEGATIVE); Blood NEGATIVE Ery/ul (0-5); Glucose NEGATIVE (NEGATIVE); Ketones NEGATIVE (NEGATIVE); Leukocyte Esterase SMALL (NEGATIVE); Nitrite NEGATIVE (NEGATIVE); Protein,Urine Dip NEGATIVE (Negative); Specific Gravity 1.014 (1.005-1.025); Urobilinogen NEGATIVE mg/dL (0-1)
[2018-06-12 15:27] LABS: ALBUMIN 4.3 g/dL (3.5-5.0); BILIRUBIN,TOTAL 0.4 mg/dL (0.2-1.3); Calcium 10.3 mg/dL (8.4-10.2); Creatinine 1 1.12 mg/dL (0.52-1.04); Potassium 4.3 mmol/L (3.5-5.1); Total Protein 7.2 g/dL (6.3-8.2)
[2018-06-12 16:18] VITALS: BP 126/59
[2018-06-12 16:57] VITALS: PULSE 60; O2SAT 96
--- NOTE | 2018-06-12 17:13 | ERPHSYRPT ---
- History of Present Illness Time Seen by Provider: 06/12/18 14:40 Source: patient, family Exam Limitations: no limitations Patient Subjective Stated Complaint: pt came from lab with not feeling well since ,weakness, nausea,loost stools 2 days ago .no fever Triage Nursing Assessment: pt alert, appears week, resp easy, chest clear abd soft, no edema Physician History: 73 y/o white female presents to ED from lab after blood draw to eval pt/inr. pt states she has been weak since . pt on coumadin. denies bleeding. pt denies headache, flu like sx, cp, soa or abd pain. has had a few loose stools but no diarrheal stools. no travel outside of [place]. no other individuals with similar sx. Timing/Duration: day(s) (a few days) Severity: mild Modifying Factors: Improves With: nothing Associated Symptoms: shortness of breath, weakness, No nausea, No vomiting Allergies/Adverse Reactions: No Known Drug Allergies Allergy (Verified 06/12/18 13:14) Home Medications: Atorvastatin Calcium 40 mg PO DAILY 09/26/15 [History] Clonazepam 0.5 mg [Klonopin 0.5 MG] 0.5 mg PO BID 09/26/15 [History] Losartan Potassium 50 mg [Cozaar 50 MG] 100 mg PO DAILY 09/26/15 [History] Omeprazole 20 MG [Prilosec 20 mg] 20 mg PO DAILY 09/26/15 [History] Escitalopram Oxalate [Lexapro] 20 mg PO DAILY 11/09/15 [History] Amlodipine Besylate 5 mg [Norvasc 5 mg] 5 mg PO BID 11/20/17 [History] Aspirin [Aspirin EC] 81 mg PO HS 11/20/17 [History] FA/Vit C/E/Zinc/Copper/Lut/Ricky [Ocuvel Capsule] 1 each PO DAILY 11/20/17 [ History] Ferrous Sulfate 325 mg [Feosol 325 mg] 325 mg PO HS 11/20/17 [History] Sanderson-3 Fatty Acids [Sanderson-3] 1,000 mg PO DAILY 11/20/17 [History] Warfarin Sodium 3 mg [Coumadin 3 MG] 2.5 mg PO DAILY@1800 11/20/17 [ History] Carvedilol 3.125 mg [Coreg 3.125 MG] 3.125 mg PO BID 11/21/17 [History] Cyanocobalamin/Folic AC/Vit B6 [Homocysteine Formula Tablet] 1 each PO DAILY [History] Hx Tetanus, Diphtheria Vaccination/Date Given: No Hx Influenza Vaccination/Date Given: No Hx Pneumococcal Vaccination/Date Given: No - Review of Systems Constitutional: Weakness Eyes: No Symptoms Ears, Nose, & Throat: No Symptoms Respiratory: No Symptoms, No Cough, No Dyspnea, No Stridor, No Wheezing Cardiac: No Symptoms, No Chest Pain, No Palpitations, No Syncope Abdominal/Gastrointestinal: No Symptoms, No Abdominal Pain, No Nausea, No Vomiting Genitourinary Symptoms: No Symptoms, No Dysuria, No Frequency, No Hematuria Musculoskeletal: No Symptoms Skin: No Symptoms Neurological: No Symptoms Psychological: No Symptoms Endocrine: No Symptoms Hematologic/Lymphatic: No Symptoms Immunological/Allergic: No Symptoms All Other Systems: Reviewed and Negative - Past Medical History Pertinent Past Medical History: Yes Neurological History: No Pertinent History ENT History: Cataracts, Macular Degeneration Cardiac History: Coronary Artery Disease, High Cholesterol, Hypertension, Myocardial Infarction ([place]) Respiratory History: Pneumonia Endocrine Medical History: No Pertinent History Musculoskeletal History: Other GI Medical History: Diverticulitis, Diverticulosis, Gallbladder Disease History: Other Psycho-Social History: Anxiety, Depression Female Reproductive Disorders: No Pertinent History Other Medical History: scleraderma - Past Surgical History Past Surgical History: Yes Neuro Surgical History: No Pertinent History Cardiac: CABG, Cardiac Catheterization, Valve Replacement Respiratory: No Pertinent History Gastrointestinal: Cholecystectomy, Other Genitourinary: Kidney Surgery Musculoskeletal: No Pertinent History Female Surgical History: No Pertinent History Other Surgical History: kidney stent x 2. colonoscopy and EGD 2017 - Social History Smoking Status: Never smoker How long have you smoked: 50 YEARS Exposure to second hand smoke: No Alcohol Use: Socially Drug Use: none Patient Lives Alone: No Significant Family History: hypertension - Female History Hx Last Menstrual Period: post Hx Now: No - Nursing Vital Signs Nursing Vital Signs: Initial Vital Signs Temperature 98.5 F 06/12/18 14:28 Pulse Rate 64 06/12/18 14:28 Respiratory Rate 18 06/12/18 14:28 Blood Pressure 133/64 06/12/18 14:28 Pain Scale Pain Intensity 0 - Physical Exam General Appearance: no apparent distress, alert, anxiety Eye Exam: PERRL/EOMI, post op pupil defect (L) Ears, Nose, Throat Exam: normal ENT inspection, TMs normal, moist mucous membranes Neck Exam: normal inspection, non-tender, supple Respiratory Exam: normal breath sounds, lungs clear, airway intact, No chest tenderness, No respiratory distress, No accessory muscle use, No rhonchi, No wheezing, No stridor Cardiovascular Exam: regular rate/rhythm, normal heart sounds, normal peripheral pulses Gastrointestinal/Abdomen Exam: soft, normal bowel sounds, No tenderness, No guarding, No rebound Pelvic Exam: not done Rectal Exam: not done Back Exam: normal inspection, normal range of motion, No CVA tenderness, No vertebral tenderness Extremity Exam: normal inspection, normal range of motion, pelvis stable Neurologic Exam: alert, oriented x 3, cooperative, 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 Skin Exam: normal color, warm, dry Lymphatic Exam: No adenopathy SpO2 Interpretation: normal SpO2: 96 Oxygen Delivery: Room Air - Course Nursing assessment & vital signs reviewed: Yes Ordered Tests: Active Orders 24 hr Category Date Time Status Clean Catch Urine Specimen STAT Care 06/12/18 14:26 Active EKG-ER Only STAT Care 06/12/18 14:27 Active IV Insertion STAT Care 06/12/18 14:26 Active Orthostatic Vital Signs STAT Care 06/12/18 14:26 Active CBC W DIFF Stat Lab 06/12/18 14:39 Completed CMP Stat Lab 06/12/18 14:39 Completed PROTIME WITH INR Routine Lab 06/12/18 12:35 Completed TROPONIN Q3H Lab 06/12/18 14:39 Completed TROPONIN Q3H Lab 06/12/18 17:30 Ordered TROPONIN Q3H Lab 06/12/18 20:30 Ordered TROPONIN Q3H Lab 06/12/18 23:30 Ordered UA W/RFX UR CULTURE Stat Lab 06/12/18 14:39 Completed Medication Summary Discontinued Medications Generic Name Dose Route Start Last Admin Trade Name Freq PRN Reason Stop Dose Admin Sodium Chloride 1,000 mls @ 999 mls/hr 06/12/18 14:26 06/12/18 16:55 Sodium Chloride 0.9% 1000 Ml IV 06/12/18 15:26 Infused .Q1H1M STA Infusion Sodium Chloride Confirm 06/12/18 14:30 Sodium Chloride 0.9% 1000 Ml Administered 06/12/18 14:31 Dose 1,000 mls @ ud .ROUTE .[facility] Lab/Rad Data: Laboratory Result Diagrams 06/12/18 14:39 06/12/18 14:39 Laboratory Results 06/12/18 06/12/18 06/12/18 Range/Units 14:39 14:39 14:39 WBC 5.9 (4.0-10.5) K/mm3 RBC 4.21 (4.1-5.4) M/mm3 Hgb 12.4 (12.0-16.0) gm/dl Hct 40.3 (35-47) % MCV 95.7 (78-100) fl MCH 29.5 (26-32) pg MCHC 30.8 L (32-36) g/dl RDW 13.0 (11.5-14.0) % Plt Count 115 L (150-450) K/mm3 MPV 12.3 H (6-9.5) fl Gran % 66.4 H (36.0-66.0) % Eos # (Auto) 0.37 (0-0.5) Absolute Lymphs (auto) 0.99 L (1.0-4.6) Absolute Monos (auto) 0.62 (0.0-1.3) Lymphocytes % 16.7 L (24.0-44.0) % Monocytes % 10.4 (0.0-12.0) % Eosinophils % 6.2 H (0.00-5.0) % Basophils % 0.3 (0.0-0.4) % Absolute Granulocytes 3.94 (1.4-6.9) Basophils # 0.02 (0-0.4) PT (9.95-12.35) SECONDS INR (0.8-3.0) Sodium 144 (137-145) mmol/L Potassium 4.3 (3.5-5.1) mmol/L Chloride 110 H (98-107) mmol/L Carbon Dioxide 23 (22-30) mmol/L Anion Gap 15.0 (5-15) MEQ/L BUN 37 H (7-17) mg/dL Creatinine 1.12 H (0.52-1.04) mg/dL Estimated GFR 50.4 ML/MIN Glucose 132 H (74-106) mg/dL Calcium 10.3 H (8.4-10.2) mg/dL Total Bilirubin 0.40 (0.2-1.3) mg/dL AST 65 H (14-36) U/L ALT 38 H (0-35) U/L Alkaline Phosphatase 136 H (38-126) U/L Troponin I < 0.012 (0.000-0.034) ng/mL Serum Total Protein 7.2 (6.3-8.2) g/dL Albumin 4.3 (3.5-5.0) g/dL Urine Color (YELLOW) Urine Appearance (CLEAR) Urine pH (5-6) Ur Specific [place] (1.005-1.025) Urine Protein (Negative) Urine Ketones (NEGATIVE) Urine Blood (0-5) Roger/ul Urine Nitrite (NEGATIVE) Urine Bilirubin (NEGATIVE) Urine Urobilinogen (0-1) mg/dL Ur Leukocyte Esterase (NEGATIVE) Urine WBC (Auto) (0-5) /HPF Urine RBC (Auto) (0-2) /HPF U Hyaline Cast (Auto) (0-2) /LPF U Epithel Cells (Auto) (FEW) /HPF Urine Bacteria (Auto) (NEGATIVE) /HPF Urine Culture Reflexed (NO) Urine Glucose (NEGATIVE) mg/dL 06/12/18 06/12/18 Range/Units 14:39 12:35 WBC (4.0-10.5) K/mm3 RBC (4.1-5.4) M/mm3 Hgb (12.0-16.0) gm/dl Hct (35-47) % MCV (78-100) fl MCH (26-32) pg MCHC (32-36) g/dl RDW (11.5-14.0) % Plt Count (150-450) K/mm3 MPV (6-9.5) fl Gran % (36.0-66.0) % Eos # (Auto) (0-0.5) Absolute Lymphs (auto) (1.0-4.6) Absolute Monos (auto) (0.0-1.3) Lymphocytes % (24.0-44.0) % Monocytes % (0.0-12.0) % Eosinophils % (0.00-5.0) % Basophils % (0.0-0.4) % Absolute Granulocytes (1.4-6.9) Basophils # (0-0.4) PT 24.5 H (9.95-12.35) SECONDS INR 2.09 (0.8-3.0) Sodium (137-145) mmol/L Potassium (3.5-5.1) mmol/L Chloride (98-107) mmol/L Carbon Dioxide (22-30) mmol/L Anion Gap (5-15) MEQ/L BUN (7-17) mg/dL Creatinine (0.52-1.04) mg/dL Estimated GFR ML/MIN Glucose (74-106) mg/dL Calcium (8.4-10.2) mg/dL Total Bilirubin (0.2-1.3) mg/dL AST (14-36) U/L ALT (0-35) U/L Alkaline Phosphatase (38-126) U/L Troponin I (0.000-0.034) ng/mL Serum Total Protein (6.3-8.2) g/dL Albumin (3.5-5.0) g/dL Urine Color YELLOW (YELLOW) Urine Appearance CLEAR (CLEAR) Urine pH 5.0 (5-6) Ur Specific [place] 1.014 (1.005-1.025) Urine Protein NEGATIVE (Negative) Urine Ketones NEGATIVE (NEGATIVE) Urine Blood NEGATIVE (0-5) Roger/ul Urine Nitrite NEGATIVE (NEGATIVE) Urine Bilirubin NEGATIVE (NEGATIVE) Urine Urobilinogen NEGATIVE (0-1) mg/dL Ur Leukocyte Esterase SMALL (NEGATIVE) Urine WBC (Auto) 3-5 (0-5) /HPF Urine RBC (Auto) 0-2 (0-2) /HPF U Hyaline Cast (Auto) 3-5 (0-2) /LPF U Epithel Cells (Auto) NONE (FEW) /HPF Urine Bacteria (Auto) RARE (NEGATIVE) /HPF Urine Culture Reflexed NO (NO) Urine Glucose NEGATIVE (NEGATIVE) mg/dL - Progress Progress: improved, re-examined Progress Note: 06/12/18 17:27 pt states she is feeling well and ready to go home. Counseled pt/family regarding: lab results, diagnosis, need for follow-up, rad results - Departure Time of Disposition: 17:28 Departure Disposition: Home Clinical Impression: Weakness Condition: Stable Critical Care Time: No Referrals: EMMA SHI [Primary Care Provider] - Additional Instructions: drink plenty of fluids. take your medications as prescribed. 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
== END 2018-06-12 17:41 | disposition home or self-care (01) ==
LOC: ED 12:56 → EDSTATUS 12:56 → ED 17:41
DX: R53.1 Weakness (principal); Z79.01 Long term (current) use of anticoagulants; Z79.899 Other long term (current) drug therapy; I48.91 Unspecified atrial fibrillation
CPT/HCPCS: 36000; 36415; 80053; 81001; 84484; 85025; 85610; 93005; 96360; 96374; 99284; 99291; 99292